=== PATIENT | male | born 1975 | race Caucasian/White ===

== ENCOUNTER 2020-07-06 14:43 | Outpatient (CLI) | payer OTHER, SELFPAY ==
--- NOTE | ~2020-07-06 | XR_ITS ---
XR lumbar spine 2-3V DATE: 07/06/2020 15:02 INDICATION: Lumbar radiculopathy TECHNIQUE: AP, lateral, coned lateral lumbosacral views COMPARISON: 03/09/2011 lumbar spine FINDINGS: There is a transitional vertebra with sacralization and pseudoarthrosis on the right. There are 4 functional lumbar vertebrae. No fracture or bone destruction or spondylolisthesis is evident. Lumbar interspaces are well preserve d. The lumbar and included lower thoracic pedicles are intact. The sacral iliac joints appear normal. Status post left inguinal hernia repair. 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 Reviewed, dictated and finalized at location B. IMPRESSION: Transitional lumbosacral vertebra with sacralization pseudoarthrosi s on the right; this may be a source of chronic low back pain.
== END 2020-07-06 14:44 | disposition home or self-care (01) ==
LOC: ANHIMG 14:50
PROVIDERS: PCP Nurse Practitioner Family; Visit Provider Nurse Practitioner Family
DX: M54.16 Radiculopathy, lumbar region (principal)
CPT/HCPCS: 72100

== ENCOUNTER 2021-08-08 19:34 | Emergency (ER) | payer OTHER, SELFPAY ==
[2021-08-08 19:38] VITALS: BP 143/88; PULSE 83; RESP 16; TEMP 36.9; O2SAT 100
--- NOTE | 2021-08-08 20:14 | ED.EAR ---
HPI - Ear Problem General Chief complaint: Ear Stated complaint: Ear Pain/Mouth Pain Time Seen by Provider: 08/08/21 19:52 Source: patient, RN notes reviewed and old records reviewed Mode of arrival: ambulatory Limitations: no limitations History of Present Illness HPI Narrative: 46 year old male who [facility] with complaints of right ear pain and also redness and discomfort to right upper gum. Patient is edentulous with mild redness noted to upper posterior gum area with patient verbalizing swelling. He has no open wounds or noted abscess formation. He reports that his right ear is very painful states constant throbbing, reports that he has been swimming lately. Patient denies any drainage from his right ear or any tinnitus. Patient has been taking Ibuprofen for his discomfort. MD Complaint: ear pain and other (right upper gum) Location: right ear Treatment prior to arrival: other (ibuprofen) Related Data Allergies Allergy/AdvReac Type Severity Reaction Status Date / Time NAPROXEN SODIUM Allergy Unknown SWELLING Uncoded 08/08/21 19:46 Review of Systems Review of Systems: CONSTITUTIONAL: Denies fever, chills, or sweats. EYES: Denies visual changes, redness, or discharge. ENT: Denies rhinorrhea, congestion, sore throat,positive for right otalgia, and also right upper gum pain posterior region, is edentulous CARDIOVASCULAR: Denies chest pain, palpitations, or edema. RESPIRATORY: Denies cough or dyspnea. GASTROINTESTINAL: Denies abdominal pain, nausea, vomiting, or diarrhea. GENITOURINARY: Denies dysuria or hematuria. SKIN: Denies rash or itching. MUSCULOSKELETAL: Denies back pain, joint pain, or myalgia. NEUROLOGIC: Denies headache, numbness, or weakness. PSYCHIATRIC: Denies anxiety or depression. [facility] Past Medical History Medical History (Updated 08/09/21 @ 20:15 by Lucy Miles NP) Ear infection Fracture of right hand Surgical History Surgical History (Updated 08/09/21 @ 20:18 by Lucy Miles NP) H/O bilateral inguinal hernia repair History of dental surgery edentulous Family History Family History Other Cerebrovascular accident Diabetes mellitus Family history of coronary artery disease Social History Social History (Updated 08/09/21 @ 20:18 by Lucy Miles NP) Smoking packs per day: 1 Smoking cigarettes per day: 20.0 Years smoked: 26 Smoking pack-years: 26.00 Smoking status: Current every day smoker Tobacco type: cigarettes Alcohol intake: never Substance use: unknown Gender identity (if verbalized by the patient): Male Comments At time of signature, agree with nursing past medical, surgical, social and family history. There is no relevant family history pertinent to the presenting complaint Exam Narrative: GENERAL: Well-appearing, well-nourished, and in no acute distress. HEAD: Normocephalic, atraumatic. EYES: PERRLA and EOMI. ENT: Nares clear, no rhinorrhea or epistaxis. Mucous membranes moist.Right TM normal with good light reflex, ear canal red and excoriated no drainage noted, Left TM normal with good light reflex,no drainage noted. Throat pink with no lesions or exudates noted or tonsil swelling. right upper gum line posterior noted small area of redness with no open lesions or any drainage noted. NECK: Supple.no lymphadenopathy CHEST: Clear to auscultation. No respiratory distress.SAO2 100% on room air HEART: Regular rate and rhythm. No murmur heard. Normal peripheral pulses. ABDOMEN: Soft, nontender, nondistended, normal active bowel sounds. EXTREMITIES: Normal range of motion. No edema. SKIN: Warm, dry, no rash. NEURO: No focal deficits. Alert and oriented x3. Course Course Level of Care: Express Care Visit Vital Signs Vital signs: Vital Signs Temperature 36.9 C 08/08/21 19:38 Pulse Rate 83 08/08/21 19:38 Respiratory Rate 16 08/08/21 19:38 Blood Pressure 143/88 H
== END 2021-08-08 20:28 | disposition home or self-care (01) ==
PROVIDERS: Emergency Provider Registered Nurse; PCP Nurse Practitioner Family
DX: H60.91 Unspecified otitis externa, right ear (principal); K08.89 Other specified disorders of teeth and supporting structures; F17.210 Nicotine dependence, cigarettes, uncomplicated
CPT/HCPCS: 99213; G0463

== ENCOUNTER 2021-11-22 08:59 | Emergency (ER) | payer OTHER, SELFPAY ==
[2021-11-22 09:14] VITALS: BP 142/78; PULSE 82; RESP 16; TEMP 36.8; O2SAT 100
--- NOTE | 2021-11-22 09:48 | ED.DENTAL ---
HPI - Dental/Oral General Chief complaint: Dental/Oral Stated complaint: Pain in gums, neck pain Time Seen by Provider: 11/22/21 09:45 Source: patient Mode of arrival: ambulatory History of Present Illness HPI Narrative: 46-year-old male presented for complaint of right and left upper gum pain for about 3 days. Patient has had all teeth removed in the remote past. No open areas, drainage, redness or swelling reported. He has taken ibuprofen today for pain. He also endorses pain to the left upper back and neck. Denies numbness, tingling, weakness of the upper extremities. Denies nausea, vomiting, fevers or chills. He is scheduled with PCP tomorrow. Complaint: tooth pain Related Data Allergies Allergy/AdvReac Type Severity Reaction Status Date / Time naproxen Allergy Swelling Verified 11/22/21 09:40 Review of Systems Review of Systems: CONSTITUTIONAL: Denies body aches, fever, chills ENT: Denies rhinorrhea, congestion, sore throat, or otalgia. Reports dental/gum pain CARDIOVASCULAR: Denies chest pain, palpitations RESPIRATORY: Denies cough or dyspnea. SKIN: Denies rash, itching, or wounds. MUSCULOSKELETAL: reports left upper back/neck pain NEUROLOGIC: Denies headache, numbness, tingling, or weakness. [facility] Past Medical History Medical History Ear infection Fracture of right hand Surgical History Surgical History H/O bilateral inguinal hernia repair History of dental surgery edentulous Family History Family History Other Cerebrovascular accident Diabetes mellitus Family history of coronary artery disease Social History Social History Smoking packs per day: 1 Smoking cigarettes per day: 20.0 Years smoked: 26 Smoking pack-years: 26.00 Smoking status: Current every day smoker Tobacco type: cigarettes Alcohol intake: never Substance use: unknown Gender identity (if verbalized by the patient): Male Comments At time of signature, I have reviewed and agree with nursing past medical, surgical, social and family history unless otherwise noted. Please see nursing chart for further information. There is no relevant family history pertinent to the presenting complaint Exam Narrative: GENERAL: well appearing HEAD: Normocephalic, atraumatic. EYES: EOMI. No redness or drainage. Conjunctivae normal. ENT: Dental/gum pain location of #13 and #4 areas, no swelling redness or drainage; Mucous membranes pink and moist. TMs normal bilaterally. Throat normal. Uvula midline. NECK: Normal AROM. No VPT. No lymphadenopathy. CHEST: No respiratory distress. Clear to auscultation. HEART: Regular rate and rhythm. No murmur appreciated. SKIN: Warm, dry, no rash. Normal skin turgor. MUSC: Subjective Left trap and infraspinatus pain, full ROM to LUE, normal strength and sensation cap refill <3seconds. NEURO: No focal deficits. Alert and oriented x3. Gait steady. Course Course Emergency Course: Patient is aware of diagnosis, understands and agrees to treatment plan. Anticipatory guidance given. Patient agrees to follow-up as directed and is aware of reasons to seek care at the emergency department. Portions of this record may have been created with voice recognition software Level of Care: Express Care Visit Vital Signs Vital signs: Vital Signs Temperature 98.2 F 11/22/21 09:14 Pulse Rate 82 11/22/21 09:14 Respiratory Rate 16 11/22/21 09:14 Blood Pressure 142/78 H 11/22/21 09:14 Pulse Oximetry 100 11/22/21 09:14 Oxygen Delivery Room Air 11/22/21 09:14 Temperature 98.2 F 11/22/21 09:14 Pulse Rate 82 11/22/21 09:14 Respiratory Rate 16 11/22/21 09:14 Blood Pressure 142/78 H 11/22/21 09:14 Pulse Oximetry 100 11/22/21 09:14 Oxygen
== END 2021-11-22 10:07 | disposition home or self-care (01) ==
PROVIDERS: Emergency Provider Nurse Practitioner Family; PCP Nurse Practitioner Family
DX: K08.89 Other specified disorders of teeth and supporting structures (principal); M54.9 Dorsalgia, unspecified; F17.210 Nicotine dependence, cigarettes, uncomplicated
CPT/HCPCS: 99213; G0463

== ENCOUNTER 2022-06-09 14:24 | Emergency (ER) | payer OTHER, SELFPAY ==
[2022-06-09 14:28] VITALS: BP 141/83; PULSE 78; RESP 16; TEMP 36.9; O2SAT 100
--- NOTE | 2022-06-09 15:02 | ED.DENTAL ---
HPI - Dental/Oral General Chief complaint: Dental/Oral Stated complaint: mouth and ear pain Time Seen by Provider: 06/09/22 14:55 Source: patient, RN notes reviewed and old records reviewed Mode of arrival: ambulatory Limitations: no limitations History of Present Illness HPI Narrative: 46 year old male who presents to[facility] wit complaint of discomfort to right upper gum area which radiates to his right ear for the past 1 day duration. Patient reports that he has been using salt watery gargles for his discomfort. Patient reports that he has noted a white raised patch of whiteness to his right upper gum area, is edentulous. Patient denies any fevers. MD Complaint: tooth pain (gum lesion) Onset (ago): day(s) (since yesterday) Severity scale (1-10): 8 Treatment prior to arrival: other (salt water gargles) Related Data Home Medications Medication Instructions Recorded Confirmed fluticasone propionate 50 1 spray intranasal Q12H 06/09/22 06/09/22 mcg/actuation nasal spray,suspension Allergies Allergy/AdvReac Type Severity Reaction Status Date / Time naproxen Allergy Swelling Verified 06/09/22 14:40 Review of Systems Review of Systems: CONSTITUTIONAL: Denies fever, chills, or sweats. ENT: Denies rhinorrhea, congestion, sore throat, reports right ear pain. Reports right upper gum discomfort and jaw discomfort. CARDIOVASCULAR: Denies chest pain, palpitations, or edema. RESPIRATORY: Denies cough or dyspnea. SKIN: Denies rash or itching. MUSCULOSKELETAL: Denies myalgia. NEUROLOGIC: Denies headache All systems reviewed & are unremarkable except as noted in HPI and below PMFSH Past Medical History Medical History Ear infection Fracture of right hand Surgical History Surgical History H/O bilateral inguinal hernia repair History of dental surgery edentulous Family History Family History Other Cerebrovascular accident Diabetes mellitus Family history of coronary artery disease Social History Social History Smoking packs per day: 1 Smoking cigarettes per day: 20.0 Years smoked: 26 Smoking pack-years: 26.00 Smoking status: Current every day smoker Tobacco type: cigarettes Alcohol intake: never Substance use: unknown Gender identity (if verbalized by the patient): Male Comments At time of signature, agree with nursing past medical, surgical, social and family history. There is no relevant family history pertinent to the presenting complaint Exam Narrative: GENERAL: Well-appearing, well-nourished, and in no acute distress. HEAD: Normocephalic, atraumatic. EYES: PERRLA and EOMI. ENT: Nares clear, no rhinorrhea or epistaxis. Mucous membranes moist, small raised whitish area to gum right upper area, TM;s normal throat pink with no swelling NECK: Supple.no lymphadenopathy CHEST: Clear to auscultation. No respiratory distress.SAO2 100% on room air HEART: Regular rate and rhythm. No murmur heard. Normal peripheral pulses. SKIN: Warm, dry, no rash. NEURO: No focal deficits. Alert and oriented x3. Course Course Emergency Course: Patient is aware of diagnosis, understands and agrees to treatment plan. Anticipatory guidance given. Patient agrees to follow-up as directed and is aware of reasons to seek care at the emergency department. Portions of this record may have been created with voice recognition software Level of Care: Express Care Visit Vital Signs Vital signs: Vital Signs Temperature 36.9 C 06/09/22 14:28 Pulse Rate 78 06/09/22 14:28 Respiratory Rate 16 06/09/22 14:28 Blood Pressure 141/83 H 06/09/22 14:28 Pulse Oximetry 100 06/09/22 14:28 Oxygen Delivery Room Air 06/09/22 14:28 Temperature 36.9 C 06/09/22 14:28 Pulse Rate
== END 2022-06-09 15:19 | disposition home or self-care (01) ==
PROVIDERS: Emergency Provider Registered Nurse; PCP Nurse Practitioner Family
DX: K05.20 Aggressive periodontitis, unspecified (principal); F17.210 Nicotine dependence, cigarettes, uncomplicated
CPT/HCPCS: 99213; G0463

== ENCOUNTER 2022-10-18 14:31 | Emergency (ER) | payer OTHER, SELFPAY ==
[2022-10-18 14:37] VITALS: BP 124/79; PULSE 81; RESP 16; TEMP 36.7; O2SAT 100
--- NOTE | 2022-10-18 14:46 | ED.MALEGU ---
HPI - Male Genitourinary General Chief complaint: Urogenital-Male Stated complaint: poss UTI Time Seen by Provider: 10/18/22 14:46 Source: patient Mode of arrival: ambulatory Limitations: no limitations History of Present Illness HPI Narrative: 47 yo M presents with c/o urinary frequency, foul smelling urine for 1 wk. Also reports cracking, pain to R ear. Saw PCP for this complaint a wk ago and given antibiotic eyedrop. No change to symptoms. Afebrile. No concern for STI. All systems reviewed and negative except as noted above. Related Data Home Medications Medication Instructions Recorded Confirmed fluticasone propionate 50 1 spray intranasal Q12H 06/09/22 10/18/22 mcg/actuation nasal spray,suspension Allergies Allergy/AdvReac Type Severity Reaction Status Date / Time naproxen Allergy Swelling Verified 10/18/22 14:45 Review of Systems Review of Systems: CONSTITUTIONAL: Denies fever, chills, or sweats. EYES: Denies visual changes, redness, or discharge. ENT: Denies rhinorrhea, congestion, sore throat, or otalgia. Reports pain and crackling to right ear. CARDIOVASCULAR: Denies chest pain, palpitations, or edema. RESPIRATORY: Denies cough or dyspnea. GASTROINTESTINAL: Denies abdominal pain, nausea, vomiting, or diarrhea. GENITOURINARY: Denies dysuria or hematuria. Reports frequency and foul-smelling urine. SKIN: Denies rash or itching. MUSCULOSKELETAL: Denies back pain, joint pain, or myalgia. NEUROLOGIC: Denies headache, numbness, or weakness. PSYCHIATRIC: Denies anxiety or depression. All other systems reviewed are negative, except as documented in HPI. [facility] Past Medical History Medical History Ear infection Fracture of right hand Surgical History Surgical History H/O bilateral inguinal hernia repair History of dental surgery edentulous Family History Family History Other Cerebrovascular accident Diabetes mellitus Family history of coronary artery disease Social History Social History Smoking packs per day: 1 Smoking cigarettes per day: 20.0 Years smoked: 26 Smoking pack-years: 26.00 Smoking status: Current every day smoker Tobacco type: cigarettes Alcohol intake: never Substance use: unknown Gender identity (if verbalized by the patient): Male Comments At time of signature, agree with nursing past medical, surgical, social and family history. There is no relevant family history pertinent to the presenting complaint. Exam Narrative: GENERAL: This is a well-nourished, well-developed patient, in no apparent distress. HEAD: normocephalic, atraumatic. EYES: PERRL. Sclera clear/white. Vision is grossly intact. EARS: External ears normal, auditory canals clear and without drainage, fluid to bilateral TMs, dull light reflex, bilateral TMs injected. No perforation but laterally. NOSE: External nose normal with no obvious nasal discharge, nares without redness, no rhinorrhea. THROAT: Mucous membranes moist, posterior pharynx clear. NECK: Neck supple, non-tender without lymphadenopathy, masses or thyromegaly. CARDIOVASCULAR: Regular rate and rhythm without murmurs, gallops, or rubs. RESPIRATORY: Clear to auscultation. Breath sounds equal bilaterally. No wheezes, rales, or rhonchi. SKIN: warm, Dry, intact with no suspicious lesions or rash, good texture and turgor. NEURO: awake, alert, and oriented to person, place and time. There were no obvious focal neurologic abnormalities. EXTREMITIES: No joint tenderness, effusion, or edema noted. Course Course Level of Care: Express Care Visit Vital Signs Vital signs: Vital Signs Temperature 36.7 C 10/18/22 14:37 Pulse Rate 81 10/18/22 14:37 Respiratory Rate 16 10/18/22 14:37 Blood Pre
[2022-10-18 14:59] LABS: Glucose Point of Care 117 mg/dl (65-105)
== END 2022-10-18 15:09 | disposition home or self-care (01) ==
PROVIDERS: Emergency Provider Nurse Practitioner Family; PCP Nurse Practitioner Family
DX: H65.01 Acute serous otitis media, right ear (principal); R35.0 Frequency of micturition; F17.210 Nicotine dependence, cigarettes, uncomplicated
CPT/HCPCS: 81003; 82948; 87086; 99213; G0463

== ENCOUNTER 2022-12-13 15:11 | Outpatient (CLI) | payer OTHER, SELFPAY ==
--- NOTE | ~2022-12-13 | XR_ITS ---
EXAMINATION: XR hip RT min 2V DATE: 12/13/2022 15:31 INDICATION: Right hip pain. TECHNIQUE: 2 views of right hip were obtained. COMPARISON: None. FINDINGS: Bone alignment is normal. There is decreased femoral head/neck offset anterolaterally, whic h may be seen with femoral acetabular impingement. Right hip joint space is normal. IMPRESSION: 1. No arthritis. Reviewed, dictated and finalized at location E. IMPRESSION: 1. No arthritis.
--- NOTE | ~2022-12-13 | XR_ITS ---
EXAMINATION: XR lumbar spine 2-3V DATE: 12/13/2022 15:31 INDICATION: Lumbar radiculopathy. TECHNIQUE: 3 views of lumbar spine were obtained. COMPARISON: Lumbar spine radiographs 07/06/2020 FINDINGS: Bone alignment is normal. Vertebral body heights and intervertebral disc heights are normal . There is multilevel mild facet joint osteoarthritis in lumbar spine. Surgical clips overlie the lef t pelvis. IMPRESSION: 1. Mild lumbar facet joint osteoarthritis. Reviewed, dictated and finalized at location E.
== END 2022-12-13 15:12 | disposition home or self-care (01) ==
PROVIDERS: PCP Nurse Practitioner Family; Visit Provider Nurse Practitioner Family
DX: M25.551 Pain in right hip (principal); M54.16 Radiculopathy, lumbar region; M51.36 Other intervertebral disc degeneration, lumbar region
CPT/HCPCS: 72100; 73502

== ENCOUNTER 2023-04-18 08:10 | Emergency (ER) | payer OTHER, SELFPAY ==
[2023-04-18 08:21] VITALS: BP 123/76; PULSE 83; RESP 16; TEMP 37.1; O2SAT 100
--- NOTE | 2023-04-18 08:43 | ED.URI ---
HPI - URI/Sore Throat General Chief Complaint: Upper Respiratory Infection Stated Complaint: throat/ears History of Present Illness HPI Narrative: pt is a 47 y/o male, presents to with 7 day hx of URI symptoms that began with nasal congestion but are not localized in the right ear and sinuses, without known fevers or chills. He denies CP or SOB, he has not taken any OTC medications for symptom relief. He denies much of a cough. He is a smoker, he denies any other associated symptoms or modifying factors. Related Data Allergies Allergy/AdvReac Type Severity Reaction Status Date / Time naproxen Allergy Swelling Verified 10/18/22 14:45 Review of Systems ENT: Comments: refer to HPI Cardiovascular: Comments: no CP or SOB, no palpitations or syncope, no orthopnea Respiratory: Comments: refer to HPI [facility] Past Medical History Medical History Ear infection Fracture of right hand Surgical History Surgical History H/O bilateral inguinal hernia repair History of dental surgery edentulous Family History Family History Other Cerebrovascular accident Diabetes mellitus Family history of coronary artery disease Social History Social History Smoking packs per day: 1 Smoking cigarettes per day: 20.0 Years smoked: 26 Smoking pack-years: 26.00 Smoking status: Current every day smoker Tobacco type: cigarettes Alcohol intake: never Substance use: unknown Gender identity (if verbalized by the patient): Male Exam Const: General: healthy appearing, no acute distress and alert Nutritional Appearance: well nourished Orientation/consciousness: patient oriented x3 Limitations: no limitations HENMT: Head: normal to inspection Ears: EAC's normal and TM abnormal (right TM is erythematous with an opaque effusion) Other: Left TM is translucent and retracted Eyes: Conjunctivae: conjunctivae normal Pupils: Equal, round and reactive pupils present EOM: EOMs intact bilaterally Direct Ophthalmoscopy: no photophobia Neck: Neck: normal visual inspection, no lymphadenopathy and no meningeal signs Resp: Effort & Inspection: normal respiratory effort Auscultation: clear to auscultation bilaterally Cardio: Rate: regular rate Rhythm: regular rhythm GI: GI Palp: Yes Soft to palpation Skin: General skin exam: normal color Rashes: no rashes Wounds: no wounds Neuro: General: patient oriented x3, moves all extremities, no meningeal signs, no focal motor deficits and CN's II-XI intact bilaterally Speech: normal speech Gait exam (Neuro): Normal gait present Extrem: General: normal to inspection and no clubbing, cyanosis or edema Course Course Emergency Course: Suspect post viral ABRS/right otitis media. will treat with oral abx, short steroid course and OTC antihistamines are encouraged. Pt is agreeable with plan. FU in 3 days if symptoms are not improving with PCP or return here. ER if condition worsens. Pt is agreeable with plan Level of Care: Express Care Visit ([id number]) Vital Signs Vital signs: Vital Signs Temperature 37.1 C 04/18/23 08:21 Pulse Rate 83 04/18/23 08:21 Respiratory Rate 16 04/18/23 08:21 Blood Pressure 123/76 04/18/23 08:21 Pulse Oximetry 100 04/18/23 08:21 Oxygen Delivery Room Air 04/18/23 08:21 Temperature 37.1 C 04/18/23 08:21 Pulse Rate 83 04/18/23 08:21 Respiratory Rate 16 04/18/23 08:21 Blood Pressure 123/76 04/18/23 08:21 Pulse Oximetry 100 04/18/23 08:21 Oxygen Delivery Room Air 04/18/23 08:21 MDM - URI/Sore Throat MDM Narrative Medical decision making narrative: oral steroids, oral abx, OTC antihistamines. FU for ear check if symptoms are not improving in 3 days Differential Diag
== END 2023-04-18 08:58 | disposition home or self-care (01) ==
PROVIDERS: Emergency Provider Nurse Practitioner Family; PCP Nurse Practitioner Family
DX: H66.91 Otitis media, unspecified, right ear (principal); J01.10 Acute frontal sinusitis, unspecified; F17.210 Nicotine dependence, cigarettes, uncomplicated
CPT/HCPCS: 99213; G0463

== ENCOUNTER 2023-09-10 11:55 | Emergency (ER) | payer OTHER, SELFPAY ==
[2023-09-10 12:00] VITALS: BP 132/77; PULSE 69; RESP 20; TEMP 36.4; O2SAT 100
--- NOTE | 2023-09-10 12:17 | ED.GENADULT ---
HPI - General Adult General Chief complaint: Dental/Oral Stated complaint: Ear Pain/Mouth Pain Time Seen by Provider: 09/10/23 12:10 Source: patient, RN notes reviewed and old records reviewed Mode of arrival: ambulatory Limitations: no limitations History of Present Illness HPI narrative: 48 year old male accompanied by daughter with one week duration of pain to his right ear and along his right upper gum area. Patient i edentulous but reports tenderness to posterior upper gum area which radiates to his ear. Patient reports that he has been taking Ibuprofen for his discomfort with no relief. Patient denies any fevers, chills or sweats, denies any sore throat or any cough. MD complaint: right ear pain, right upper gum area pain Onset (ago): week(s) (1) Severity: moderate Treatments prior to arrival: NSAID and other (salt water gargles) Related Data Allergies Allergy/AdvReac Type Severity Reaction Status Date / Time naproxen Allergy Swelling Verified 10/18/22 14:45 Review of Systems Review of Systems: CONSTITUTIONAL: Denies fever, chills, or sweats. ENT: Denies rhinorrhea, congestion, sore throat, positive for right ear otalgia. reports some pain to top right gum area with no redness or swelling noted. CARDIOVASCULAR: Denies chest pain, palpitations, or edema. RESPIRATORY: Denies cough or dyspnea. SKIN: Denies rash or itching. MUSCULOSKELETAL: Denies myalgia. NEUROLOGIC: Denies headache All systems reviewed & are unremarkable except as noted in HPI and below PMFSH Past Medical History Medical History Ear infection Fracture of right hand Surgical History Surgical History H/O bilateral inguinal hernia repair History of dental surgery edentulous Family History Family History Other Cerebrovascular accident Diabetes mellitus Family history of coronary artery disease Social History Social History Smoking packs per day: 1 Smoking cigarettes per day: 20.0 Years smoked: 26 Smoking pack-years: 26.00 Smoking status: Current every day smoker Tobacco type: cigarettes Alcohol intake: never Substance use: unknown Gender identity (if verbalized by the patient): Male Comments At time of signature, agree with nursing past medical, surgical, social and family history. There is no relevant family history pertinent to the presenting complaint Exam Narrative: GENERAL: Well-appearing, well-nourished, and in no acute distress. HEAD: Normocephalic, atraumatic. EYES: PERRLA and EOMI. ENT: Nares clear, no rhinorrhea or epistaxis. Mucous membranes moist. edentulous. Right TM red, Left TM normal, throat pink with no swelling. no redness or swelling of gums noted states discomfort upper right posterior gum area with no evidence of abscess or any welling is edentulous NECK: Supple. no lymphadenopathy CHEST: Clear to auscultation. No respiratory distress. respirations even and nonlabored , no cough or tachypnea, SAO2 100% on room air HEART: Regular rate and rhythm. No murmur heard. Normal peripheral pulses. SKIN: Warm, dry, no rash. NEURO: No focal deficits. Alert and oriented x3. Course Course Emergency Course: Patient is aware of diagnosis, understands and agrees to treatment plan. Anticipatory guidance given. Patient agrees to follow-up as directed and is aware of reasons to seek care at the emergency department. Portions of this record may have been created with voice recognition software Level of Care: Express Care Visit Vital Signs Vital signs: Vital Signs Temperature 36.4 C 09/10/23 12:00 Pulse Rate 69 09/10/23 12:00 Respiratory Rate 20 09/10/23 12:00 Blood Pressure 132/77 09/10/23 12:00 Pulse Oximetry 100 09/10/23 12:00 Oxygen Delivery Room Air
== END 2023-09-10 12:42 | disposition home or self-care (01) ==
PROVIDERS: Emergency Provider Registered Nurse; PCP Nurse Practitioner Family
DX: H66.91 Otitis media, unspecified, right ear (principal); K08.89 Other specified disorders of teeth and supporting structures; F17.210 Nicotine dependence, cigarettes, uncomplicated
CPT/HCPCS: 99213; G0463

== ENCOUNTER 2024-08-05 08:45 | Emergency (ER) | payer OTHER, SELFPAY ==
[2024-08-05 08:56] VITALS: BP 148/86; PULSE 76; RESP 18; TEMP 36.8; O2SAT 100
--- OUTSIDE RECORDS SUMMARY | 2024-08-05 09:02 | XMS_ITS | Referral Summary ---
Author Organization [facility] Medical Office Building [facility] Address [address] [place] [address] Care Team Providers Care Operator Coating Furnace Name Role Phone Stinson, Yanet Mcgarry NP Primary Care Provider Allergies Active Allergy Reactions Criticality Noted Date Comments Naproxen Swelling Medium Medications acetaminophen (TYLENOL ORAL) Take by mouth Active ibuprofen (ibuprofen) 200 mg tab/cap Take by mouth every 6 (six) hours as needed for pain Active Active Problems Problem Noted Date Diagnosed Date Palpitations 09/24/2019 Assessment & Plan (09/24/2019 12:00 PM CDT): A plan to further investigate this with echocardiography. If the patient has normal cardiac structure and performance in the setting of a normal ECG and normal exam without a family history of sudden places him in a very safe risk group. Conservative management at that point would be suggested. I will call him with normal echocardiographic findings. Abnormal glucose 09/24/2019 Assessment & Plan (09/24/2019 12:00 PM CDT): Patient has had glucose values that have been above 100. We discussed the importance of weight management in staying is lean is possible to help avoid any long-term affects. Hx of colonic polyps 08/29/2019 Overview (08/29/2019): Added automatically from request for surgery [id number] Muscle spasm 11/20/2017 Assessment & Plan (11/20/2017 6:43 AM CDT): Patient presented with complains of muscle spasm with posturing of the right upper extremity that lasted about 30 min. Associated with some numbness in the hand. Neurology was consulted Differential diagnosis cervical stenosis, brachial plexus disorder, demyelinating disease, seizure disorder. Workup is in progress. Will follow up with MRI results of the cervical spine and brain Start on aspirin Will check for fasting lipid panel for cardiovascular risk stratification Smoker 11/20/2017 Assessment & Plan (09/24/2019 12:01 PM CDT): Because the patient voiced an interest in smoking cessation we spent approximately 12-15 minutes discussing its importance, its affect it may have had on his body, and establishing a plan for success. Patient appears to be mildly motivated toward success. Assessment & Plan (11/20/2017 6:43 AM CDT): Discussed and encouraged smoking cessation. 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 Gender Identity Not on file Sexual Orientation Not on file Last Filed Vital Signs Vital Sign Reading Time Taken Comments Blood Pressure 119/91 11/14/2019 10:05 AM CDT Pulse 64 11/14/2019 10:05 AM CDT Temperature 36.7 C (98.1 F) 11/14/2019 10:05 AM CDT Respiratory Rate 18 11/14/2019 10:05 AM CDT Oxygen Saturation 99% 11/14/2019 10:05 AM CDT Inhaled Oxygen Concentration - - Weight 78.9 kg (174 lb) 11/14/2019 7:51 AM CDT Height 177.8 cm (5' 10) 11/14/2019 7:51 AM CDT Body Mass Index 24.97 11/14/2019 7:51 AM CDT Plan of Treatment Not on file Procedures Procedure Name Priority Date/Time Associated Diagnosis Comments COLONOSCOPY 11/14/2019 7:44 AM CDT from Last 3 Months or Most Recently Relevant to Health Maintenance Results * COLONOSCOPY (11/14/2019 7:44 AM CDT) Anatomical Region Laterality Modality Other Narrative Procedure Note Hong Acosta MD - 11/14/2019 7:44 AM CDT [facility] Patient Name: Elliot Cancino Procedure Date: 11/14/2019 7:44 AM Date of : 1975 Admit Type: Outpatient Age: 44 Gender: Male Attending MD: Hong Acosta M.D. Room: [facility] ENDOSCOPY ROOM 1 Note Status: Finalized Patient Profile: This is a 44 year old male. Patient has history of polyps. Reported his last colonoscopy at outside hospital is not available at this time. No family history of colon cancer but he has family history of colon polyps. Procedure: Colonoscopy Indications: High risk colon cancer surveillance: Personalhistory of colonic polyps, Last colonoscopy: 2014 Referring MD: Kenyon Fernandes M.D. Providers: Hong Acosta M.D. Impression: - The entire examined colon is normal. - Small internal hemorrhoids. - No specimens collected. Recommendation: - Repeat colonoscopy in 5 years for surveillance. - Continue present medications. Medicines: Monitored Anesthesia Care Complications: No immediate complications. Estimated Blood Loss: Estimated blood loss: none. Procedure: Pre-Anesthesia Assessment: - Prior to the procedure, a History and Physical was performed, and patient medications and allergieswere reviewed. The patient's tolerance of previous anesthesia was also reviewed. The risks and benefitsof the procedure and the sedation options and riskswere discussed with the patient. All questions were answered, and informed consent was obtained. Prior Anticoagulants: The patient has taken no previous anticoagulant or antiplatelet agents. ASA Grade Assessment: II - A patient with mild systemicdisease. After reviewing the risks and benefits, the patientwas deemed in satisfactory condition to undergo the procedure. The benefits, risks and alternatives of theprocedure and sedation were discussed and informed consent was obtained. All questions were answered. Please referto the signed informed consent document in the medical record. The bowel preparation used was Miralax. The bowel preparation used was bisacodyl tablets. Bowel prep was administered using a split dose. The scopewas passed under direct vision. The PediatricColonoscope PCF-H190L [id number] was introduced through the anusand advanced to the the cecum, identified by appendiceal orifice and ileocecal valve. The quality of thebowel preparation was excellent. Findings: The perianal and digital rectal examinations were normal. The cecum appeared normal. The terminal ileum appeared normal. The colon (entire examined portion) appeared normal. No polyps and no mass lesions noted. Internal hemorrhoids were found during retroflexion. The hemorrhoids were small. Electronically signed by Hong Acosta M.D. Hong Acosta M.D. 11/14/2019 9:39:34 AM Number of Addenda: 0 Note Initiated On: 11/14/2019 7:44 AM Procedure Code(s): --- Professional --- 10509, Colonoscopy, flexible; diagnostic, including collection of specimen(s) by brushing or washing, when performed (separateprocedure) Diagnosis Code(s): --- Professional --- Z86.010, Personal history of colonic polyps K64.8, Other hemorrhoids CPT copyright 2017 [employer]. All rights reserved. The codes documented in this report are preliminary and upon sterile processing technologist reviewmay be revised to meet current compliance requirements. Recognized by the [place] [employer] for promoting quality in endoscopy Hong Acosta MD ENDOSCOPY PROCEDURES Final Result from Last 3 Months or Most Recently Relevant to Health Maintenance Insurance [facility] Advance Directives For more information, please contact: [phone] * Full Code (Latest Code Status on File) Date Activated Date Inactivated Comments 11/14/2019 7:43 AM 11/14/2019 2:51 PM * Full Code Date Activated Date Inactivated Comments 11/19/2017 11:09 PM 11/20/2017 10:08 PM * Full Code Date Activated Date Inactivated Comments 11/19/2017 2:14 PM 11/19/2017 11:09 PM Care Teams Operator Coating Furnace Relationship Specialty Start Date End Date Yanet Stinson NP [address] [place] [address] PCP - General Nurse Practitioner 03/14/22
--- OUTSIDE RECORDS SUMMARY | 2024-08-05 09:02 | XMS_ITS | Clinical Summary ---
Author Organization [facility] Address [address] [place] [address] Care Team Providers Care Rn Care Manager Name Role Phone Poonam Velez MD Primary Care Provider [phone] Source Comments [facility],non-owned Affiliates and Associated Physician Practices is amultiple site organization consisting of ambulatory clinics and hospital sitesin [place], [place], [place] and [place]. This disclosure is being madepursuant to the Care Everywhere program and may not contain all information available regarding this patient. Last updated 17.[facility] Medications * Be aware that medications may not be up to date on this document. Alwaysverify current medications with the patient. 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 Gender Identity Not on file Sexual Orientation Not on file Last Filed Vital Signs Vital Sign Reading Time Taken Comments Blood Pressure - - Pulse - - Temperature - - Respiratory Rate - - Oxygen Saturation - - Inhaled Oxygen Concentration - - Weight 72.6 kg (160 lb) 07/03/2016 9:15 AM CDT Height 177.8 cm (5' 10) 07/03/2016 9:15 AM CDT Body Mass Index 22.96 07/03/2016 9:15 AM CDT Plan of Treatment Health Maintenance Due Date Last Done Comments COLOGUARD (AGES 45-75) - COL ON CA SCREENING 1975 COLON MONITORING 1975 COLONOSCOPY - COLON CA SCREENING 1977 CT COLONOGRAPHY - COLON CA SCREENING 1975 Colorectal Cancer Screening 1975 FIT - COLON CA SCREENING 1975 FLEX SIG - COLON CA SCREENING 1975 LIPID TESTING 1975 HIV SCREENING 1992 HEPATITIS C SCREENING 06/11/1995 DTAP/TDAP/TD VACCINES (1 - Tdap) 1996 HEPATITIS B VACCINE (1 of 3 - 19+ 3-dose series) 1996 COVID-19 VACCINE (1 - 2023-2 5 season) 2023 DEPRESSION SCREENING 02/20/2024 INFLUENZA VACCINE (Season Ended) 2024 ZOSTER VACCINE (1 of 2) 06/16/2027 HIB VACCINE Aged Out No longer eligi ble based on patient's age to complete this topic HPV VACCINE Aged Out No longer eligi ble based on patient's age to complete this topic MENINGOCOCCAL (Group B) VACC INE SHARED DECISION-MAKING Aged Out No longer eligibl e based on patient's age to complete this topic MENINGOCOCCAL GROUPS A/C/Y/W VACCINE Aged Out No longer eligible b ased on patient's age to complete this topic PNEUMOCOCCAL VACCINE Aged Out No long er eligible based on patient's age to complete this topic Care Teams Rn Care Manager Relationship Specialty Start Date End Date Poonam Velez MD PCP - General 05/11/15
--- OUTSIDE RECORDS SUMMARY | 2024-08-05 09:02 | XMS_ITS | Clinical Summary ---
Author Organization [facility] Medical Office Building [address] Address [address] [place] [address] Care Team Providers Care Lasting Floorworker Name Role Phone Stinson, Yanet Mcgarry NP [...] (08/29/2019): Added automatically from request for surgery [id number] Muscle spasm 11/20/2017 Assessment & Plan (11/20/2017 [...] Discussed and encouraged smoking cessation. 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 Gender Identity Not on file Sexual Orientation Not on file Obstetrics History Last Filed Vital Signs Vital Sign Reading [...] 11/14/2019 7:51 AM CDT Plan of Treatment Health Maintenance Due Date Last Done Comments Depression Screening 1975 Hepatitis C Screening 1975 DTaP/Tdap/Td Vaccine (1 - Tdap) 1988 Hepatitis B Screening 06/16/1995 Regular Well Visit/Exam 18-64 06/16/1995 Pneumococcal vaccine <65 (1 of 2 - PCV) 1996 Influenza Vaccine (Season Ended) 2024 Colon Cancer Screening-Colonoscopy 11/13/20292019 Procedures Procedure Name Priority Date/Time Associated Diagnosis Comments COLONOSCOPY 11/14/2019 7:44 AM CDT from Last 3 Months or Most Recently Relevant to Health Maintenance Results * COLONOSCOPY (11/14/2019 7:44 AM CDT) Anatomical Region Laterality Modality Other Narrative Procedure Note Hong Acosta MD - 11/14/2019 7:44 AM CDT [facility] Patient Name: Elliot Cancino Procedure Date: 11/14/2019 7:44 AM Date of : 1975 Admit Type: Outpatient Age: 44 Gender: Male Attending MD: Hong Acosta M.D. Room: [facility] ENDOSCOPY ROOM 1 Note Status: Finalized Patient [...] passed under direct vision. The PediatricColonoscope PCF-H190L [id number] was introduced through the anusand advanced to [...] 7:44 AM Procedure Code(s): --- Professional --- 37342, Colonoscopy, flexible; diagnostic, including collection of specimen(s) by brushing or washing, when performed (separateprocedure) Diagnosis Code(s): --- Professional --- Z86.010, Personal history of colonic polyps K64.8, Other hemorrhoids CPT copyright 2017 [employer]. All rights reserved. The codes documented in this report are preliminary and upon asphalt paver operator reviewmay be revised to meet current compliance requirements. Recognized by the [employer] for promoting quality in endoscopy Hong Acosta MD ENDOSCOPY PROCEDURES Final Result from Last 3 Months or Most Recently Relevant to Health Maintenance Insurance [facility] Advance Directives For more information, please contact: [phone] * Full Code (Latest Code Status on File) Date Activated Date Inactivated Comments 11/14/2019 7:43 AM 11/14/2019 2:51 PM * Full Code Date Activated Date Inactivated Comments 11/19/2017 11:09 PM 11/20/2017 10:08 PM * Full Code Date Activated Date Inactivated Comments 11/19/2017 2:14 PM 11/19/2017 11:09 PM Care Teams Lasting Floorworker Relationship Specialty Start Date End Date Yanet Stinson NP [address] [place] [address] PCP - General Nurse Practitioner 03/14/22
--- OUTSIDE RECORDS SUMMARY | 2024-08-05 09:02 | XMS_ITS | Data Portability ---
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 Plan of Treatment Reminders Order Date Submit Date Provider Last Modified By Organization Details Last Modified Time Details Appointments None recorded . Lab rapid strep group A, throat 2023 024 In-Office Order, Internal Use Only DO Not Attach Compendium DO Not Attach Compendium, Do Not Delete/merge, [id number] 11:03:41 rapid SARS CoV 2 Ag, QL IA, respirat ory specimen 2023 024 In-Office Order, Internal Use Only DO Not Attach Compendium DO Not Attach Compendium, Do Not Delete/merge, [id number] 11:03:23 rapid flu (A+B) 2023 024 In-Office Order, Internal Use Only DO Not Attach Compendium DO Not Attach Compendium, Do Not Delete/merge, [id number] 11:03:30 streptoc occus group A, culture, throat 2023 024 MAKEDA [facility], [address] [place] [address] 2, [place], [address], 4 03:12:32 TSH, ultra-se nsitive, serum 2022 023 MAKEDA [facility], [address], [place], [address], 3 08:29:07 CMP, serum or plasma 2022 023 [facility], [address], [place], [address], 3 03:08:03 lipid panel, serum 2022 023 [facility], [address], [place], [address], 3 03:08:02 CBC 2022 023 [facility], [address], [place], [address], 3 03:08:04 Referral dermatol ogist referral - Patient has appt 07/10/19 24 2023 024 MAKEDA Neil MD, [address] [facility], [address] , [place], [address], 4 11:30:35 Procedures None recorded . Surgeries None recorded . Imaging CT, sinuses, w/wo contrast [address] [facility] (Radiology), [address] [facility] , [place], [address], 4 09:28:26 XR, lumbosac ral spine, 2 or 3 view [address], [address] [place] [address] [address], [place], [address], 3 14:11:40 XR, hip, unilater al, 2 or 3 view 2022 023 [facility], [facility] [address], [place], [address], 3 11:13:10 Medication Orders amoxicil vinay 875 mg-potas sium clavulan ate 125 mg tablet 2023 024 [facility] #[id number], [address] [facility], [place], [place], [id number], 4 11:39:54 fluticas one propiona te 50 mcg/actu ation nasal spray,dixon spension 2022 023 [facility] #[id number], [address] , [place], [place], [id number], 4 10:43:56 ipratrop ium bromide 21 mcg (0.03 %) nasal spray 2022 023 [facility] #[id number], [address] [facility], [place], [place], [id number], 4 10:44:01 Patient TargetsNo targets recorded. Patient Instructions Encounter Date Encounter Id Patient Instructions Last Modified By Organization Details Last Modified Time 12/13/2022 [id number] - Avoid heavy lifting and over-exertion. - Avoid bed-rest do some gentle stretching and continue with normal activities. - Use ice to relieve pain, 15 minutes every 2 4 hours. - Use heat to relax muscles, 15 minutes every 2 4 hours. - Sleep on a firm surface and avoid lying on the sofa. Not available 12/13/2022 15:38:12 obtain xray, reji n pending results Not available 12/13/2022 15:38:20 01/17/2023 [id number] neck strain: car e instructions Not available 01/17/2023 14:25:19 gastroesophageal reflux disease (GERD): care instructions Not available 01/17/2023 14:25:08 seasonal allergi es: care instructions Not available 01/17/2023 14:25:08 Increase intake of fresh fruits, and vegetables. Avoid packaged foods and fast foods. Follow a low salt diet, drink at least 8-10 8oz glasses of water a day, exercise most days of the week. Take all medications as prescribed. Keep appointments with PCP and all specialists. Not available 01/17/2023 14:24:50 follow up as dexter wilcox, yearly to keep established with provider Not available 01/17/2023 14:25:05 03/16/2023 [id number] sore throat: car e instructions Not available 03/16/2023 11:03:16 upper respirator y infection (cold): care instructions Not available 03/16/2023 11:05:18 Mucinex and othe r OTC cold/cough remedies are fine to take, increase fluids and have good handwashing. Get plenty of rest. Not available 03/16/2023 11:04:06 follow up as needed Not availa ble 03/16/2023 11:04:12 05/31/2023 [id number] Quitting Tobacco : Care Instructions Not available 05/31/2023 11:08:13 Continue to cut back on smoking. Not available 05/31/2023 11:08:51 follow up as needed Not availa ble 05/31/2023 11:09:01 07/03/2023 [id number] Take all antibio tics prescribed to you. If any fever or increase in pain, call/return to office. Not available 07/03/2023 11:40:48 Plan pending imaging results. f/u as needed DWP barriers to care: none Not available 07/03/2023 11:40:57 Reason for Referral Scheduling Manager Referral for P igmented skin lesion of uncertain nature Patient has appt 07/10/2023 Referring Physician: Yanet Ortega, Family Medicine, Encounter Date: 05/31/2023 Results Created Date Observation Date Name Description Value Unit Range Abnormal Flag Note LastModifiedBy Organization Detail LastModifiedTime 01/18/20 23 01/17/2023 LIPID PANEL cholesterol, total 175 mg/dL 100-19 9 Not Available [facility] [address] [place], [address], 01/18/2023 03:08:02 01/18/20 23 01/17/2023 LIPID PANEL triglyceride s 240 mg/dL 0-149 above high normal Not Available [facility] [address] [place] [address], [address], 01/18/2023 03:08:02 01/18/20 23 01/17/2023 LIPID PANEL HDL cholesterol 39 mg/dL 40-999 below low normal Not Available [facility] [address] [place] [address], [address], 01/18/2023 03:08:02 01/18/20 23 01/17/2023 LIPID PANEL VLDL cholesterol yaron 48 mg/dL 5-40 above high normal Not Available [facility] [address] [place] [address], [address], 01/18/2023 03:08:02 01/18/20 23 01/17/2023 LIPID PANEL LDL chol calc (nih) 123 mg/dL 0-99 above high normal Not Available [facility] [address] [place] [address], [address], 01/18/2023 03:08:02 01/18/20 23 01/17/2023 COMP. METAB OLIC PANEL (14) glucose 65 mg/dL 70-99 below low normal Not Available [facility] [address] [place] [address], [address], 01/18/2023 03:08:03 01/18/20 23 01/17/2023 COMP. METAB OLIC PANEL (14) BUN 10 mg/dL 6-24 Not Available [facility] [address] [place] [address], [address], 01/18/2023 03:08:03 01/18/20 23 01/17/2023 COMP. METAB OLIC PANEL (14) creatinine 1.00 mg/dL 0.76-1 .27 Not Available [facility] [address] [place] [address], [address], 01/18/2023 03:08:03 01/18/20 23 01/17/2023 COMP. METAB OLIC PANEL (14) eGFR 95 >=60 Units for eGFR value s are mL/mi n/1.7 3 The eGFR Calcu latio n has not been valid ated for patie nts under the age of 18. If test resul ts are displ ayed for a patie nt under the age of 18, disre cathi that value . Not Available [facility] [address] [place] [address], [address], 01/18/2023 03:08:03 01/18/20 23 01/17/2023 COMP. METAB OLIC PANEL (14) BUN/creatini ne ratio 10 9-20 Not Available [facility] Department [address] [place] [address], [address], 01/18/2023 03:08:03 01/18/20 23 01/17/2023 COMP. METAB OLIC PANEL (14) sodium 141 mmol/ L 134-14 4 Not Available [facility] [address] [place] [address], [address], 01/18/2023 03:08:03 01/18/20 23 01/17/2023 COMP. METAB OLIC PANEL (14) potassium 4.5 mmol/ L 3.5-5. 2 Not Available [facility] [address] [place] [address], [address], 01/18/2023 03:08:03 01/18/20 23 01/17/2023 COMP. METAB OLIC PANEL (14) chloride 101 mmol/ L 96-106 Not Available [facility] [address] [place] [address], [address], 01/18/2023 03:08:03 01/18/20 23 01/17/2023 COMP. METAB OLIC PANEL (14) carbon dioxide, total 28 mmol/ L 20-29 Not Available [facility] [address] [place] [address], [address], 01/18/2023 03:08:03 01/18/20 23 01/17/2023 COMP. METAB OLIC PANEL (14) calcium 9.9 mg/dL 8.7-10 .2 Not Available [facility] [address] [place], [address], 01/18/2023 03:08:03 01/18/20 23 01/17/2023 COMP. METAB OLIC PANEL (14) protein, total 6.8 g/dL 6.0-8. 5 Not Available [facility] [address] [place], [address], 01/18/2023 03:08:03 01/18/20 23 01/17/2023 COMP. METAB OLIC PANEL (14) albumin 4.7 g/dL 4.1-5. 1 Not Available [facility] [address] [place], [address], 01/18/2023 03:08:03 01/18/20 23 01/17/2023 COMP. METAB OLIC PANEL (14) globulin, total 2.1 g/dL 1.5-4. 5 Not Available [facility] [address] [place], [address], 01/18/2023 03:08:03 01/18/20 23 01/17/2023 COMP. METAB OLIC PANEL (14) A/G ratio 2.2 1.2-2. 2 Not Available [facility] [address] [place], [address], 01/18/2023 03:08:03 01/18/20 23 01/17/2023 COMP. METAB OLIC PANEL (14) bilirubin, total 0.3 mg/dL 0.0-1. 2 Not Available [facility] [address] [place], [address], 01/18/2023 03:08:03 01/18/20 23 01/17/2023 COMP. METAB OLIC PANEL (14) alkaline phosphatase 76 IU/L 44-121 Not Available [facility] [address] [place], [address], 01/18/2023 03:08:03 01/18/20 23 01/17/2023 COMP. METAB OLIC PANEL (14) AST (SGOT) 18 IU/L 0-40 Not Available [facility] Department [address] [place] [address], [address], 01/18/2023 03:08:03 01/18/20 23 01/17/2023 COMP. METAB OLIC PANEL (14) ALT (SGPT) 20 IU/L 0-44 Not Available [facility] Department [address] [place], [address], 01/18/2023 03:08:03 01/18/20 23 01/17/2023 CBC, NO DIFFE RENTI AL/PL ATELE T WBC 11.6 x10e3 /uL 3.4-10 .8 above high normal Not Available [facility] [address] [place] [address], [address], 01/18/2023 03:08:03 01/18/2001/17/2023 CBC, NO DIFFE RENTI AL/PL ATELE T RBC 5.47 x10e6 /uL 4.14-5 .80 Not Available [facility] [address] [place] [address], [address], 01/18/2023 03:08:03 01/18/2001/17/2023 CBC, NO DIFFE RENTI AL/PL ATELE T hemoglobin 15.8 g/dL 13.0-1 7.7 Not Available [facility] [address] [place] [address], [address], 01/18/2023 03:08:03 01/18/2001/17/2023 CBC, NO DIFFE RENTI AL/PL ATELE T hematocrit 46.8 % 37.5-5 1.0 Not Available [facility] [address] [place] [address], [address], 01/18/2023 03:08:03 01/18/20 23 01/17/2023 CBC, NO DIFFE RENTI AL/PL ATELE T MCV 86 fL 79-97 Not Available [facility] [address] [place], [address], 01/18/2023 03:08:03 01/18/2001/17/2023 CBC, NO DIFFE RENTI AL/PL ATELE T MCH 28.9 pg 26.6-3 3.0 Not Available [facility] [address] [place], [address], 01/18/2023 03:08:03 01/18/2001/17/2023 CBC, NO DIFFE RENTI AL/PL ATELE T MCHC 33.8 g/dL 31.5-3 5.7 Not Available [facility] [address] [place], [address], 01/18/2023 03:08:03 01/18/20 23 01/17/2023 CBC, NO DIFFE RENTI AL/PL ATELE T RDW 12.1 % 11.5-1 4.5 Not Available [facility] [address] [place], [address], 01/18/2023 03:08:03 01/18/2001/17/2023 CBC, NO DIFFE RENTI AL/PL ATELE T NRBC 0 % 0-0 Not Available [facility] [address] [place], [address], 01/18/2023 03:08:03 01/18/2001/18/2023 TSH RFX ON ABNOR MAL TO FREE T4 TSH 1.300 uIU/m L 0.450- 4.500 Not Available [facility] ([facility]) [address] [facility], [place], [address], 01/18/2023 08:29:07 03/16/19 24 03/19/2023 BETA STREP GP A CULTU RE beta strep gp A culture Negati ve Refer ence Range : Negat christiano Not Available [facility] ([facility]) [address] [facility], [place], [address], 03/19/2023 03:12:32 03/16/19 24 03/16/2023 rapid strep group A, throa t Strep negati ve Not Available In-Office Order Internal Use Only DO Not Attach Compendium DO Not Attach Compendium, Do Not Delete/merge, [id number] 03/16/2023 11:03:09 03/16/19 24 03/16/2023 rapid flu (A+B) Flu A negati ve Not Available In-Office Order Internal Use Only DO Not Attach Compendium DO Not Attach Compendium, Do Not Delete/merge, [id number] 03/16/2023 11:03:12 03/16/19 24 03/16/2023 rapid flu (A+B) Flu B negati ve Not Available In-Office Order Internal Use Only DO Not Attach Compendium DO Not Attach Compendium, Do Not Delete/merge, [id number] 03/16/2023 11:03:12 03/16/19 24 03/16/2023 rapid SARS CoV 2 Ag, QL IA, respi rator y speci men rapid SARS CoV 2 Ag, QL IA, respiratory specimen negati ve Not Available In-Office Order Internal Use Only DO Not Attach Compendium DO Not Attach Compendium, Do Not Delete/merge, [id number] 03/16/2023 11:03:10 12/15/19 23 12/13/2022 XR, hip, unila teral , 2 or 3 view No observ ation record ed. [email or web address] [facility] [address], [place], [address], 12/14/2022 14:10:27 Result Notes None recorded. Problems Name Problem SNOMED Code Status Onset Date Resolution Date Notes Provider Name and Address Organization Details Recorded Time Gastroes ophageal reflux disease without esophagi tis 949589561 Active 2018 Yanet Ortega APN, DRAWING SUPERVISOR-C Attn: Angie davidson[address] [facility], [place], [address], [place] - [facility] 9 23:11:29 History of polyp of colon 858711103 Active 2018 Yanet Ortega APN, DRAWING SUPERVISOR-C Attn: Angie davidson,[address] [facility], [place], [address], [place] [facility] 9 23:11:31 Pain of multiple joints 56976839 Active 2018 Yanet Ortega APN, DRAWING SUPERVISOR-C Attn: Angie davidson,[address] [facility], [place], [address], [place] [facility] 9 23:11:35 Sinusiti s 82239503 Completed 06/19/2018 Valencia Mancera PA-C Attn: Angie davidson,[address] [facility], [place], [address], [place] [facility] 9 14:09:23 Pain of elbow region 83623928 Completed 06/19/2018 Removal Reason: resolved Valencia Mancera PA-C Attn: Angie davidson,[address] [facility], [place], [address], [place] [facility] 9 14:13:41 Lumbar radiculo elvis 487581019 Active 2020 Yanet Ortega APN, FNP-C Attn: Angie davidson,[address] [facility], [place], [address], [place] [facility] 1 10:50:35 Increase d frequenc y of urinatio n 253395642 Active 2020 Yanet Ortega APN, FNP-C Attn: Angie davidson,[address] [facility], [place], [address], [place] [facility] 1 10:50:36 Tobacco user 735047842 Active Poonam benson [place] - [facility] 6 14:51:33 Lesion of lip 833164578 Completed 08/12/2018 Valencia Mancera PA-C Attn: Angie davidson,[address] [facility], [place], [place], [address] [place] [address], [place] [facility] 9 11:49:40 Infectio n of tooth 067544555 Active 2020 Yanet Ortega APN, DRAWING SUPERVISOR-C Attn: Angie davidson,[address] [facility], [place], [place], [address] [place] [address], [place] [facility] 1 15:58:42 Dizzines s 212662926 Completed 08/12/2018 Valencia Mancera PA-C Attn: Angie davidson,[address] [facility], [place], [place], [address] [place] [address], [place] [facility] 9 11:49:29 Contact dermatit is 50161260 Completed 06/19/2018 Removal Reason: resolved Valencia Mancera PA-C Attn: Angie davidson,[address] [facility], [place], [place], [address] [place] [address], [place] [facility] 9 14:13:23 Acid reflux 355673652 Completed 06/19/2018 Removal Reason: resolved Valencia Mancera PA-C Attn: Angie davidson,[address] [facility], [place], [place], [address] [place] [address], [place] [facility] 9 14:12:07 Foot callus 410275352 Completed 06/19/2018 Removal Reason: resolved Valencia Mancera PA-C Attn: Angie davidson,[address] [facility], [place], [place], [address] [place] [address], [place] [facility] 9 14:12:53 Viral pharyngi tis 3280913 Completed 06/19/2018 Valencia Mancera PA-C Attn: Angie davidson,[address] [facility], [place], [place], [address] [place] [address], [place] [facility] 9 14:09:12 Seasonal allergic rhinitis 723517018 Active Poonam Velez null, [place] - [facility] 6 12:09:48 Backache 335542002 Active Poonam Velez [facility] 6 12:09:48 Conjunct ivitis 9848096 Completed 06/19/2018 Valencia Mancera PA-C Attn: Angie davidson,[address] [facility], [place], [address], [facility] 9 14:09:35 Apocrine gland cyst 13547703 Completed 08/12/2018 Valencia Mancera PA-C Attn: Angie davidson,[address] [facility], [place], [address], [facility] 9 11:49:35 Problem Notes None recorded. Procedures Surgical History Date Name Laterality Status Provider Name and Address Organization Details Recorded Time Hernia Repair completed [facility] 04/09/2014 09:29:41 Other completed [facility] 04/09/2014 09:29:41 Imaging Results None recorded. Procedure Notes None recorded. Medical Equipment None Reported. Allergies Allergen ID Allergen Name Allergen Category Reaction Reaction Severity Criticality Documentation Date Start Date Code Code System Note Provider Name and Address Organization Details Recorded Time [id number] Aleve medicatio n edema severe Not available 12/14/2020 84379 1 RxNorm Brynn Hammond MA [facility] 15:25:26 Medications Name Sig Start Date Stop Date Status Note LastModified by Organization Details LastModified Time amox/k clav tab 500mgamoxi cillin/cla vulanate potassium active Not Available Not Available No t Available ciprofloxa patt hcl 0.3 % soln active Not Available Not Available N ot Available triamcinol one acetonide 0.5 % crea active Not Available Not Available N ot Available amoxicilli n cap 500mgamoxi cillin active Not Available Not Available Not Available cyclobenza jessenia 10 mg tablet 02/03 completed Not Available Not Available Not Available amoxicilli n 500 mg capsule TAKE 1 CAPSULE BY MOUTH EVERY 8 HOURS FOR 7 DAYS 04/26 completed Not Available Not Available Not Available prednisone 10 mg tablet Take by mouth as directed :Week 1: 4 tablets per dayweek 2: 2 tablets per dayweek 3: 1 tablet per day 03/16 completed Not Available Not Available Not Available triamcinol one acetonide 0.5 % topical cream APPLY A THIN LAYER TO THE AFFECTED AREA(S) BY TOPICAL ROUTE 2 TIMES PER DAY TO AFFECTED AREA 02/10 completed Not Available Not Available Not Available cetirizine 10 mg tablet TAKE 1 TABLET BY MOUTH DAILY 12/13 completed Not Available Not Available Not Available ibuprofen 800 mg tablet Take 1 tablet every 8 hours by oral route with meals. 07/09 completed Not Available Not Available Not Available Lidocaine Viscous 2 % mucosal solution 02/03 completed Not Available Not Available Not Available ranitidine 300 mg tablet Take 1 tablet every day by oral route at bedtime. 08/12 completed Not Available Not Available Not Available ibuprofen 200 mg capsule Take 2 capsules as needed by oral route. 04/26 completed Not Available Not Available Not Available prednisone 20 mg tablet TAKE 2 TABLETS BY MOUTH DAILY FOR 5 DAYS 05/30 completed Not Available Not Available Not Available penicillin V potassium 500 mg tablet TAKE 1 TABLET BY MOUTH EVERY 8 HOURS FOR 7 DAYS 02/03 completed Not Available Not Available Not Available acetaminop hen 300 mg-codeine 30 mg tablet TAKE 1 TABLET BY MOUTH EVERY 6 HOURS NEEDED FOR PAIN 05/17 completed Not Available Not Available Not Available sulfametho xazole 800 mg-trimeth oprim 160 mg tablet TAKE 1 TABLET BY MOUTH EVERY 12 HOURS FOR 7 DAYS 11/23 completed Not Available Not Available Not Available triamcinol one acetonide 0.1 % topical cream APPLY A THIN LAYER TO THE AFFECTED AREA(S) BY TOPICAL ROUTE 2 TIMES PER DAY 08/03 completed Not Available Not Available Not Available amoxicilli n 500 mg tablet TAKE 1 TABLET BY MOUTH EVERY 12 HOURS 08/30 completed Not Available Not Available Not Available ofloxacin 0.3 % ear drops INSTILL 5 DROPS TO RIGHT EAR TWICE DAILY FOR 7 DAYS 08/30 completed Not Available Not Available Not Available ciprofloxa patt 0.3 % eye drops INSTILL 1 DROP INTO AFFECTED EYE(S) BY OPHTHALM IC ROUTE EVERY 2 HOURSWHI LE AWAKE FOR 2 DAYS THEN 1 DROP EVERY 4 HRS WHILE AWAKE FOR 5 DAYS 10/21 completed Not Available Not Available Not Available ranitidine 150 mg tablet Take 1 tablet twice a day by oral route as directed . 06/19 completed Not Available Not Available Not Available promethazi ne 25 mg tablet 07/09 completed Not Available Not Available Not Available nicotine 21 mg/24 hr daily transderma l patch Apply 1 patch every day by transder mal route. 12/04 completed Not Available Not Available Not Available docusate sodium 100 mg capsule take one tab PO daily x 2 weeks then use as needed 08/12 completed Not Available Not Available Not Available buspirone 7.5 mg tablet Take 1 tablet every day by oral route at bedtime. 08/12 completed Not Available Not Available Not Available zinc gluconate 50 mg tablet TAKE 1 TABLET BY MOUTH EVERY DAY 01/17 completed Not Available Not Available Not Available montelukas t 10 mg tablet TAKE 1 TABLET BY MOUTH EVERY DAY AT BEDTIME 03/16 completed Not Available Not Available Not Available diclofenac sodium 50 mg tablet,del ayed release Take 1 tablet twice a day by oral route as needed. 07/09 completed Not Available Not Available Not Available methylpred nisolone 4 mg tablets in a dose pack Take 1 dose pk by oral route. 09/15 completed not taking Not Available Not Available Not Available fluticason e propionate 50 mcg/actuat ion nasal spray,susp ension SHAKE LIQUID AND USE 1 SPRAY IN EACH NOSTRIL TWICE DAILY 05/30 completed Not Available Not Available Not Available clotrimazo le 1 % topical cream SHADY EXT AA BID 02/10 completed Not Available Not Available Not Available ipratropiu m bromide 21 mcg (0.03 %) nasal spray [place] by intranas al route for 44 days. 05/30 completed Not Available Not Available Not Available loratadine 10 mg tablet TAKE 1 TABLET BY MOUTH EVERY MORNING 12/04 completed Not Available Not Available Not Available ipratropiu m bromide 0.02 % solution for inhalation 05/30 completed Not Available Not Available Not Available amoxicilli n 875 mg-potassi um clavulanat e 125 mg tablet TAKE 1 TABLET BY MOUTH EVERY 12 HOURS FOR 7 DAYS active Not Available Not Available No t Available amoxicilli n 500 mg-potassi um clavulanat e 125 mg tablet TAKE 1 TABLET BY MOUTH EVERY 12 HOURS 07/20 completed Not Available Not Available Not Available neomycin-p olymyxin-h ydrocort 3.5 mg-10,000 unit/mL-1 % ear drops,susp INSTILL 4 DROPS IN AFFECTED EAR(S) THREE TIMES DAILY FOR 7 DAYS 12/13 completed Not Available Not Available Not Available chlorhexid ine gluconate 0.12 % mouthwash RINSE AND SPIT 15ML BY MOUTH TWICE DAILY NEEDED 12/13 completed Not Available Not Available Not Available Vitals Date Recorded Body height Body mass index (BMI) Body weight Oxygen saturation Oxygen saturation in Arterial blood by Pulse oximetry Heart rate Respiratory rate Body temperature Systolic blood pressure Diastolic blood pressure Provider Name and Address Organization Details Last Updated DateTime 4 177.8 cm 23 kg/m2 97285.7 8 g 99 % 99 % 80 /min 16 /min 97.5 [degF] 134 mm[Hg] 86 mm[Hg] Coretta Velásquez [facility] 4 10:50:33 Date Recorded Body height Body mass index (BMI) Body weight Oxygen saturation Oxygen saturation in Arterial blood by Pulse oximetry Heart rate Respiratory rate Body temperature Systolic blood pressure Diastolic blood pressure Provider Name and Address Organization Details Last Updated DateTime 4 177.8 cm 23.1 kg/m2 02772.3 7 g 98 % 98 % 88 /min 16 /min 97.1 [degF] 120 mm[Hg] 78 mm[Hg] Coretta Velásquez [facility] 4 10:45:53 Date Recorded Body height Body mass index (BMI) Body weight Oxygen saturation Oxygen saturation in Arterial blood by Pulse oximetry Heart rate Respiratory rate Body temperature Systolic blood pressure Diastolic blood pressure Provider Name and Address Organization Details Last Updated DateTime 4 177.8 cm 23.1 kg/m2 16560.3 7 g 99 % 99 % 80 /min 16 /min 98.1 [degF] 114 mm[Hg] 80 mm[Hg] Coretta Velásquez [facility] 4 11:23:25 Date Recorded Body height Body mass index (BMI) Body weight Oxygen saturation Oxygen saturation in Arterial blood by Pulse oximetry Heart rate Respiratory rate Body temperature Systolic blood pressure Diastolic blood pressure Provider Name and Address Organization Details Last Updated DateTime 3 177.8 cm 22.1 kg/m2 76935.2 2 g 99 % 99 % 90 /min 16 /min 98.7 [degF] 124 mm[Hg] 74 mm[Hg] Coretta Christen [facility] 3 15:30:08 Date Recorded Body height Body mass index (BMI) Body weight Oxygen saturation Oxygen saturation in Arterial blood by Pulse oximetry Heart rate Respiratory rate Body temperature Systolic blood pressure Diastolic blood pressure Provider Name and Address Organization Details Last Updated DateTime 3 177.8 cm 23 kg/m2 68318.7 8 g 97 % 97 % 84 /min 16 /min 98 [degF] 124 mm[Hg] 84 mm[Hg] Coretta Velásquez [facility] 3 14:05:34 Social History Question Answer Notes LastModified by [employer] ion Details LastModified Time Tobacco Smoking Status Current Every Day Smoker Karon Nicegan [facility] 04/09/2014 09:29:41 Do You Have An Advance Directive? No Information not available 06/19/2018 Are You Blind Or Do You Have Difficulty Seeing? No Information not available 07/05/2020 What Is Your Level Of Caffeine Consumption? Heavy Soda, Sweet Tea [email or web address] Information not available 12/13/2022 How Much Tobacco Do You Chew? None [email or web address] Information not available 04/09/2014 In The 14 Days Before Symptom Onset, Have You Had Close Contact With A Laboratory-confir med COVID-19 While That Case Was Ill? No Information not available 06/24/2019 In The 14 Days Before Symptom Onset, Have You Had Close Contact With A Person Who Is Under Investigation For COVID-19 While That Person Was Ill? No Information not available 06/24/2019 Have You Been To An Area Known To Be High Risk For COVID-19? No Information not available 06/24/2019 Are You Deaf Or Do You Have Serious Difficulty Hearing? No Information not available 07/05/2020 What Type Of Diet Are You Following? REGULAR Information not available 05/10/2015 Which Illicit Or Recreational Drugs Have You Used? None Information not available 06/19/2018 Education 12 Information no t available 02/11/2020 Are There Any Guns Present In Your Home? No Information not available 06/19/2018 Hard Of Hearing Or Deaf In One Or Both Ears? No Information not available 07/10/2019 Legally Blind In One Or Both Eyes? No Information no t available 07/10/2019 Marital Status Informati on not available 05/10/2015 What Was The Date Of Your Most Recent Tobacco Screening? 07/03/2023 Information not available 07/03/2023 Do You Have Any Pets? Yes Cat And Dog [email or web address] Information not available 08/30/2021 What Is Your Relationship Status? Information not available 05/17/2020 Do You Use Your Seat Belt Or Car Seat Routinely? Yes Information not available 05/17/2020 Seat Belts Used Routinely Yes Information not available 06/19/2018 Are You Sexually Active? Yes Information not available 07/05/2020 Smoke Alarm In Home Yes Information not available 06/19/2018 Do You Have Smoke And Carbon Monoxide Detectors In Your Home? Yes Information not available 05/17/2020 At What Age Did You Start Smoking Tobacco? 19 Information not available 07/10/2019 Are You Passively Exposed To Smoke? Yes Information no t available 05/17/2020 How Much Tobacco Do You Smoke? 0.5 PPD A Little More Information not available 07/03/2023 General Stress Level High Information not available 08/12/2019 Do You Use Sunscreen Routinely? No Information not available 06/19/2018 Has Tobacco Cessation Counseling Been Provided? Yes [email or web address] Information not available 06/19/2018 On What Date Was Tobacco Cessation Counseling Provided? 03/16/2023 Information not available 03/16/2023 How Many Years Have You Smoked Tobacco? 27 03/16/23 Information not available 03/16/2023 Sex: Male Functional Status Question Answer Note LastModified by Organization Details LastModified Time Do you use any illicit or recreational drugs? No hx pastora [email or web address] Information not available 12/13/2022 Do you or have you ever used any other forms of tobacco or nicotine? No [email or web address] Information not available 07/05/2020 What is your level of alcohol consumption? None [email or web address] Information not available 12/13/2022 Do you or have you ever used smokeless tobacco? Never used smokeless tobacco Information not available 12/04/2018 Are you currently employed? No Information not available 01/17/2023 Are you able to care for yourself? Yes [email or web address] Information not available 07/05/2020 Do you or have you ever used e-cigarettes or vape? Never used electronic cigarettes Information not available 12/04/2018 What is your exercise level? None Information not available 03/16/2023 What type of noise exposure are you exposed to? noExposureToExcessiveN oise [email or web address] Information not available 08/30/2021 Mental Status Question Answer Note LastModified by Organization D etails LastModified Time Do you feel stressed (tense, restless, nervous, or anxious, or unable to sleep at night)? [id number] polly Information not available 05/17/2020 Family History Relationship Description Onset Age of this Age Resolved Age Notes LastModified by Organization Details LastModified Time Father Harmful pattern of use of alcohol [email or web address] Not available 04/20 14:37:08 Maternal Grandmother Diabetes mellitus rreiter Not available 2018 13:54:43 Maternal Grandmother Hypercholest erolemia rreiter Not available 2018 13:54:52 Maternal Grandmother Hypertensive disorder rreiter Not available 2018 13:55:01 Maternal Uncle Malignant tumor of colon [email or web address] Not available 02/03 15:35:48 Maternal Uncle Cerebrovascu lar accident [email or web address] Not available 15:27:39 Maternal Uncle Myocardial infarction [email or web address] Not available 11/20 15:27:56 Maternal Uncle Myocardial infarction [email or web address] Not available 11/20 15:27:57 Medical History Condition Response Coronary Artery Disease N Other N Atrial Fibrillation N High Blood Pressure N Thyroid Problems N Kidney or Bladder Problems N GI Problems N Depression N COPD N Blood Clots N Eating Disorder N Skin Problems N Anemia N Heart Attack (GA) N Anxiety Disorder N Diabetes N Muscle, Joint, or Bone Problems Y Seizures/Epilepsy N Acid Reflux (GERD) Y Cancer N Stroke N Asthma N Allergies Y ADHD N Substance Abuse N High Cholesterol N Hepatitis N Liver Disease N Schizophrenia N Headaches N Heart Failure N Osteoporosis N Immunizations Vaccine Type Date Status Note Provider Name and Address Organization Details Recorded Time Influenza, split virus, quadrivalent, preservative 12/05/19 19 cancelled patient objection Not Available [facility] 03/08/2019 02:38:15 tetanus toxoid, unspecified formulation 08/19/19 14 completed LIZ Cramer [facility] [place] [facility] 05/10/2015 13:53:56 Influenza, split virus, quadrivalent, preservative 02/11/20 20 cancelled patient objection Yanet Ortega APN, DRAWING SUPERVISOR-C Attn: [employer],[address] [place], [address], [facility] 02/11/2020 12:40:50 Past Encounters Encounter ID Performer Location Encounter Start Date Encounter Closed Date Diagnosis/Indication Diagnosis SNOMED-CT Code Diagnosis ICD10 Code Diagnosis Note [id number] [facility] [address] [place] [address] 04/09/2014 08:52:54 04/09/2014 12:25:08 Sinusitis 86186154 Amoxicilli n 500 mg po tid for 10 days. Advised saline nasal spray and steam inhalation . Advised patient to quit smoking. Pain of elbow region 11916729 Likely sprain. c/o pain when he lifts any weight. Advised patient to use otc Ibuprofen, elbow brace and rest. Tobacco user 219106520 A dvised patient to quit smoking. Lesion of lip 583066864 2 Hyperpigme nted macular spots on the upper lip mucosal side for 3 days .No pain,no bleeding. Advised patient observe the spots.Advi se to come for follow up if they are increasing in size ,any bleeding or if they are not improving. [id number] MD Savanna Suarez (Adult Med) [address] [place] [address] 08/06/2014 09:06:03 08/06/2014 11:05:18 Sinusitis 70418730 Patient was treated with amoxicilli n in March.r ecurrence of symptoms. Advised saline nasal spray and steam inhalation . Advised patient to quit smoking. Augmentin 875 mg po bid for 10 days. Dizziness 354210720 Tammy ent is c/o intermitte nt diziness and tiredness and fatigue. Will do labs cbc,cmp,ts h. Tobacco user 204627706 A dvised patient to quit smoking. [id number] MD Savanna Suarez (Adult Med) [address] [place] [address] 08/31/2014 09:29:19 08/31/2014 10:34:02 Contact dermatitis 05711300 Patient has rash over the forearms and mild erythema over the scrotum.No lesions over the face. Triamcinol one 0.5% cream apply bid. Advised patient to take otc claritin 10 mg po daily and Benadryl 25 mg po at bed time. Follow up if the skin rash is not improving. [id number] MD Skye Gonzalezhalto (Adult Med) [address] [place] [address] 02/17/2015 09:03:52 02/18/2015 16:05:23 Sinusitis 40983328 J01.81 [id number] MD Rhett Brothers (Fam Med) [address] [place] [address] 05/10/2015 13:44:47 05/10/2015 14:53:37 Acid reflux 736588485 K21.9 Tobacco user 220495203 Z 72.0 Foot callus 543021523 L8 4 Adult heal th examination 655903388 Z00.01 [id number] MD Rhett Brothers (Fam Med) [address] [place] [address] 08/06/2015 11:04:35 08/06/2015 13:09:23 Viral pharyngitis 1072316 J02.8 Seasonal a llergic rhinitis 466452609 J30.2 Backache 630126604 M54.9 Conjunctivitis 9779996 H 10.9 [id number] Poonam Velez MD Rhett (Fam Med) [address] [place] [address] 10/22/2015 09:28:33 10/22/2015 10:02:05 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 Recommend antibacter ial soap, hot compresses and avoid shaving or deodorant to area and monitor for growth, increased pain, fever, chills, etc. [id number] [facility] [address] [place] [address] 06/19/2018 13:30:41 06/24/2018 11:33:32 Adult health examination 058201778 Z00.00 43yo male here to establish with a PCP. He is reluctant to take any daily medication s. Seasonal a llergic rhinitis 015745888 J30.2 Advised if worsens to start OTC zyrtec or claritin, etc. Pain of mu ltiple joints 42961454 M25.50 r/o connective tissue disease since pains are diffuse. Given handout for back & neck stretches. Advised on daily routine of stretching for muscle tightness/ spasms. Trial of different NSAID. Generalize d anxiety disorder 56116228 F41.1 patient's feels his anxiety is causing issues at home since he makes her more anxious while she is trying to take care of kids. He reports he has been anxious most of his life. It does prevent him from doing things at times or causes excessive worry. Chronic constipation 236 818635 K59.09 Advised on high fiber diet, add fiber supplement . Use daily stool softener until stools more regular. Hemorrhoids 23408576 K64 .9 discussed use of Preparatio n H, treat chronic constipati on. Cholesterol screening 27 5131292 Z13.220 Gastroesop hageal reflux disease without esophagitis 001870969 K21.9 discussed diet, start medication at bedtime to help w/ daytime nausea khris first thing in aM. Left inguinal hernia 236 022577 K40.90 s/p mesh repair few years ago. He continues to have pain even with ejaculatio n. May need to see different gen surgeon or if it persists. Tobacco user 348988003 Z 72.0 he is reluctant to try medication for this. will try to reduce/isabel t on own. [id number] MD Savanna Humphrey (Adult Med) [address] [place] [address] 08/12/2018 11:27:03 08/13/2018 10:57:09 Seasonal allergic rhinitis 955447573 J30.2 no longer taking anti-hista mine per initial visit. restart along w/ nasal steroid, continue taking throughout allergy season. Tobacco user 476404999 Z 72.0 he is interested in quitting, will try patch, can't chew gum, no more teeth Otalgia of left ear 1089 950807 059845 H92.02 no infection noted, possible eustachian tube dysfunctio n w/ allergy sxs. [id number] MD Savanna Lemus (Adult Med) [address] [place] [address] 12/04/2018 13:30:52 12/05/2018 10:45:05 Influenza vaccination declined 273569815 Z28.21 refused Tobacco user 301607289 Z 72.0 Smoking cessation encouraged . Seasonal a llergic rhinitis 967666262 J30.2 Advised if worsens to start OTC zyrtec or claritin, etc. Pain of mu ltiple joints 16218407 M25.50 r/o connective tissue disease since pains are diffuse. encouraged back & neck stretches. dwp to take diclofenac that he has not yet tried, will refill rx if that works better than ibu Gastroesop hageal reflux disease without esophagitis 740743530 K21.9 discussed diet, cont medication prn History of polyp of colon 486626941 Z86.010 due for repeat , will send referral [id number] MD Savanna Lemus (Adult Med) [address] [place] [address] 06/24/2019 08:01:00 06/25/2019 14:13:38 Pain of multiple joints 31146436 M25.50 r/o connective tissue disease since pains are diffuse. encouraged back & neck stretches. dwp to take diclofenac that he has not yet tried, will refill rx if that works better than ibu Tobacco user 618302701 Z 72.0 Smoking cessation encouraged . History of polyp of colon 280915709 Z86.010 due for repeat , will send referral when he can go, delayed d/t new job and covid Gastroesop hageal reflux disease without esophagitis 282582777 K21.9 discussed diet, cont medication prn [id number] MD Savanna Lemus (Adult Med) [address] [place] [address] 07/10/2019 08:28:00 07/11/2019 08:08:43 Acute sinusitis 71344579 J01.90 sinus pressure with purulent drainage, start amox Lumbago with sciatica 20 4631078 M54.41 M54.42 pain bilaterall y, medrol dose pack, Strain of back muscle 26 4467212 S39.012A dwp to cont with gentle stretching and cont ice/heat [id number] MD Savanna Lemus (Adult Med) [address] [place] [address] 08/12/2019 13:32:27 08/13/2019 11:28:03 Generalized rash 882039977 R21 papular erythemato us rash, per pt and photos sent; start steroid burst Dysfunctio n of eustachian tube 62918499 H69.93 bilateral TM's with middle ear fluid, cont flonase [id number] MD Savanna Lemus (Adult Med) [address] [place] [address] 09/16/2019 08:19:20 09/17/2019 10:40:04 Intermittent palpitations 883102032 R00.2 no fhx early cad, dwp to go to ER if worse, will start with ekg, dwp referral to cardio as well Dyspnea on exertion 6084 5006 R06.09 dwp need to do testing for copd, advised smoking cessation Contact dermatitis 19017 004 L25.9 intermitte nt rash, possible heat related, rx for topical, dwp keep skin cool and dry [id number] JULISSA Rodriguez NP [employer]emaker [address] [place] [address] 09/24/2019 09:08:13 09/25/2019 09:12:25 Suspected COVID-19 127334384 Z03.818 D/w pt the current pandemic of COVID-19 and call for social isolation in order to blunt the curve and minimize risk and spread. Encouraged patient and family to take restrictio ns seriously. They have verbalized understand ing of such. Viral syndrome 606764305 B34.9 [id number] MD Savanna Lemus (Adult Med) [address] [place] [address] 02/11/2020 08:16:50 02/12/2020 00:18:21 Influenza vaccination declined 578627196 Z28.21 refused Otalgia of right ear 411 0643164 176065 H92.01 pain 3-4 days not improving, no longer using flonase d/t side effects, will send amox [id number] MD Savanna Lemus (Adult Med) [address] [place] [address] 05/17/2020 09:12:01 05/18/2020 09:20:24 Cat scratch injury 271841405 T14.8XXA wound care/hygie ne advised, dwp since neck or above will cover with abx, ok to use uli as well, call if any worsening symptoms [id number] MD Savanna Lemus (Adult Med) [address] [place] [address] 07/05/2020 09:10:11 07/06/2020 11:31:29 Lumbar radiculopathy 275944086 M54.16 -nsaid for inflammati on -will get chiro records -PT eval needed -will start order for MRI, may be on hold for documentat ion, Increased frequency of urination 215921831 R35.0 dwp no burning, just increase frequency, will get labs, plan pending Endocrine/ metabolic screening 691441618 Z13.228 Cholesterol screening 27 8097164 Z13.220 Tobacco user 988912420 Z 72.0 Smoking cessation encouraged . Overweight 264633247 E66 .3 advised low fat, low cholestero l diet, regular exercise and weight reduction. [id number] Yanet Ortega APN, [facility] [address] [place] [address] 12/14/2020 15:03:38 12/20/2020 06:56:03 Infection of tooth 822179769 K04.7 right cheek and upper gums inflamed, will send pcn Tobacco user 769956546 Z 72.0 Smoking cessation encouraged . Pigmented skin lesion 20 2973693 L81.9 Left side groin has dark lesion approx 0.25 cm, not raised, no erythema or discharge; advised pt to monitor and will refer if any changes noticed [id number] MD Savanna Lemus (Adult Med) [address] [place] [address] 02/21/2021 12:59:03 02/22/2021 09:11:25 Acute right otitis media 220825228 H66.91 hx of aom, with lymph nodes enlarged, dwp will send amox. advised f/u if not improved [id number] MD Savanna Lemus (Adult Med) [address] [place] [address] 04/26/2021 15:32:32 04/27/2021 06:46:12 Acute right otitis media 492042981 H66.91 hx of aom, with lymph nodes enlarged, dwp will send augmentin Infection of tooth 35447 8007 K04.7 right cheek and upper gums inflamed, will send abx [id number] MD Savanna Ariza (Adult Med) [address] [place] [address] 08/30/2021 10:13:44 08/31/2021 08:22:40 Pain of right temporomandibular joint 8991883403 0694677 M26.621 soft diet anti-infla mmatories follow up if not improving [id number] MD Savanna Lemus (Adult Med) [address] [place] [address] 10/11/2021 15:42:30 10/12/2021 08:53:36 Increased frequency of urination 258410790 R35.0 dwp no burning, just increase frequency, will get labs, plan pending Infection of tooth 97203 8007 K04.7 right cheek and upper gums inflamed, will send abx Tobacco user 868754816 Z 72.0 Smoking cessation encouraged . [id number] MD Savanna Lemus (Adult Med) [address] [place] [address] 11/23/2021 09:33:24 11/24/2021 12:14:06 Dental abscess 546143328 K04.7 has had teeth pulled now, still getting infection to upper gums, left edematous, will send abx [id number] MD Savanna Lemus (Adult Med) [address] [place] [address] 02/03/2022 15:20:42 02/06/2022 14:04:02 Acute bilateral otitis media 311248072 H66.93 Azael TM erythema and edema/bulg ing Lymphadenopathy 97672108 R59.1 right side of neck, pea sized, dwp abx use [id number] MD Savanna Lemus (Adult Med) [address] [place] [address] 03/10/2022 11:27:40 03/14/2022 14:59:29 Posterior rhinorrhea 37651104 R09.82 start antihistam ine qd Cervical lymphadenopathy 429122128 R59.0 dwp will get US since he has been on several rounds of abx and still has palpable nodes Smoker 39269160 F17.200 Smoking cessation encouraged . [id number] MD Savanna Lemus (Adult Med) [address] [place] [address] 07/20/2022 10:15:46 07/24/2022 10:39:59 Lesion of oral mucosa 5345832456 100663 K13.70 cont oral care with dentist as planned,de ntures?? Contact de rmatitis caused by urushiol from [facility] 108000934 L25.5 papular erythemato us rash; start steroid cream [id number] MD Savanna Lemus (Adult Med) [address] [place] [address] 08/03/2022 11:40:48 08/08/2022 11:10:17 Otitis externa 0546458 H60.333 azael canals inflamed,r x abx dropskeep ears free of water Seasonal a llergic rhinitis 932589185 J30.2 Advised if worsens to start OTC zyrtec or claritin, etc.start singulair Lesion of oral mucosa 10 03429672 730390 K13.70 cont oral care with dentist as planned,de ntures?? Cannabis dependence 8500 5007 F12.20 dwp effects Problem ge tting an erection 999774652 N52.9 dwp stress and cannabis use as possible causes, pt will reduce smoking to see if that helps [id number] MD Savanna Lemus (Adult Med) [address] [place] [address] 12/13/2022 15:14:07 12/19/2022 16:07:09 Lumbar radiculopathy 106781891 M54.16 -nsaid for inflammati on -will get chiro records -PT eval needed -will start order for MRI, may be on hold for documentat ion, -needs xrays by radiology not by chiropract or refer to ortho, Pain of ri ght hip joint 0681384723 07412 M25.551 popping and locking, will get xray as well [id number] MD Savanna Lemus (Adult Med) [address] [place] [address] 01/17/2023 13:24:38 01/18/2023 09:15:08 Strain of neck muscle 976997007 S16.1XXA pt has FROM,advis ed heat, ice, and stretching Gastroesop hageal reflux disease without esophagitis 187637409 K21.9 discussed diet, cont medication prn Seasonal a llergic rhinitis 445656545 J30.2 cont nasal sprays as directed, will refill Adult heal th examination 549621498 Z00.01 Encouraged patient to eat well balanced meals, live active lifestyle and attend routine vision/den joni apts. [id number] MD Savanna Lemus (Adult Med) [address] [place] [address] 03/16/2023 10:30:59 03/20/2023 13:30:10 Sore throat 965015541 J02.9 sore throat for 3 days,rapid negative, will send for culture Upper resp iratory infection 21966584 J06.9 dwp most viral illnesses will clear in 7-10 days, if still symptomati c, then please call or make apt and will give abx at that time [id number] MD Savanna Lemus (Adult Med) [address] [place] [address] 05/31/2023 10:38:47 06/08/2023 09:38:49 Tobacco user 099183799 Z72.0 Smoking cessation encouraged . Pigmented skin lesion of uncertain nature 956092076 L81.9 new lesion, just showed up 3 weeks ago2 mm anderson/brown raised lesion to right side of hairline in scalp/fore head,famil y hx of skin cancer-mom will refer to derm [id number] MD Savanna Lemus (Adult Med) [address] [place] [address] 07/03/2023 11:13:10 07/03/2023 19:33:48 Acute right otitis media 541136390 H66.91 hx of aom, with lymph nodes enlarged,r ight tm inflamed, left with omedwp will send augmentin Recurrent acute otitis media 822877296 H65.199 will send referral once he has new insurance, advised pt to let me know.will go ahead and get CT sinuses to see if that is causing the recurrent [facility] Concerns Section Related Observation LastModified by Organization Detai ls LastModified Time None Recorded Concern Status LastModified by Organization Details LastModified Time None Recorded Advance Directives Directive N: Payers Insurance Date Sequence Insurance Name Policy Number Policy Melgar Covered Member ID Melgar Member ID Guarantor Name 08/29/2021 SLIDING FEE SCHEDULE - DISCOUNT Elliot Cancino 09/11/2019 SLIDING FEE SCHEDULE - DISCOUNT Elliot Cancino 12/03/2020 2 *SELF PAY* Do nald Barak 07/03/2023 [facility] - DOS ON OR AFTER 20 (MEDICAID REPLACEMENT - HMO) Elliot Cancino [id number] Elliot Cancino 07/02/2023 1 MEDICAID-[place]: [facility] Elliot Cancino [id number] Elliot Cancino 05/31/2023 1 [facility] (MEDICAID HMO) Elliot Cancino [id number] Elliot Cancino 05/31/2023 2 [facility] - DOS PRIOR TO 2020 (MEDICAID REPLACEMENT - HMO) Elliot Cancino [id number] Elliot Cancino 05/31/2023 1 [facility] - DOS ON OR AFTER 20 (MEDICAID REPLACEMENT - HMO) Elliot Cancino [id number] Elliot Cancino Notes Date Note Type Note Provider Name and Address Organization Details Recorded Time 12/13/2022 text/html right hip pain that radiated down to foot for 2 days. Pt states he's been lifting and bending heavy objects at work. ibuprofen not helping Yanet Ortega APN, DRAWING SUPERVISOR-C Attn: [employer]ing[address] [facility], [place], [address], [facility] 12/13/2022 15:40:12 01/17/2023 text/html Pt not sure why he is here, thinks it might be for an annual exam c/o possible pulled muscle in shoulder- pain radiates to neck. otc ibuprofen not helping turned his neck and pain in neck down his shoulder, happened yesterday (states he told the MA is did it working out to impress her) rates pain 2-3/10 Yanet Ortega APN, DRAWING SUPERVISOR-C Attn: Accounting[address] [place], [address], [facility] 01/17/2023 23:46:12 03/16/2023 text/html sx started 3 day s ago. otc ibuprofenear pain, sore throat, congestion Yanet Ortega APN, DRAWING SUPERVISOR-C Attn: Accounting[address] [place], [address], [facility] 03/16/2023 11:13:53 05/31/2023 text/html pt has little bu mp on right side of forehead. pt states it occasional hurts. noticed it 3 weeks ago. tried popping it and nothing came out. has family hx of skin cancer-mom, pt admits not wearing hat or sunscreen Yanet Ortega APN, ABHINAV Attn: Accounting[address] [facility], [place], [address], [facility] 05/31/2023 11:09:57 07/03/2023 text/html ear pain causing jaw and right side of neck to hurt. pain started 1 week ago, otc meds do not help, still has pain where his teeth used to be, hopefully getting dental insurance soon so he can see dentist Yanet Ortega APN, ABHINAV Attn: Accounting[address] [facility], [place], [address], [facility] 07/03/2023 17:17:57
[2024-08-05 09:05] LABS: EDUAAPPEAR Clear; EDUABILI Negative (Negative); EDUABLOOD Negative (Negative); EDUACOLOR1 Yellow; EDUAGLUCOSE Negative (Negative); EDUAKETONE Negative (Negative); EDUALEUKO Negative (Negative); EDUANITRATE Negative (Negative); EDUAPH 6.5; EDUAPROTEIN Negative (Negative); EDUAUROBILI 0.2
--- NOTE | 2024-08-05 09:09 | ED.EAR ---
HPI - Ear Problem General Chief complaint: Ear Stated complaint: Right Ear Pain/Urinary Problem Source: patient Mode of arrival: ambulatory Limitations: no limitations History of Present Illness HPI Narrative: Patient is a 49-year-old male who presents to the clinic with right ear pain and burning with urination x 1 day. He has not been taking anything [id number]. Currently rating his ear pain a 5/10. Denies any hearing loss. Denies any concerns for STDs. Related Data Allergies Allergy/AdvReac Type Severity Reaction Status Date / Time naproxen Allergy Swelling Verified 10/18/22 14:45 Review of Systems Review of Systems: CONSTITUTIONAL: Denies malaise, chills, ?or fever. EYES: Denies visual changes, redness, or discharge. ENT: Denies rhinorrhea, congestion, sinus pain, and sore throat. ?Reports right ear pain. CARDIOVASCULAR: Denies chest pain, palpitations, or edema. RESPIRATORY: Denies cough or dyspnea. GASTROINTESTINAL: Denies abdominal pain, nausea, vomiting, diarrhea. : Reports Dysuria. SKIN: Denies rash or itching. MUSCULOSKELETAL: Denies myalgia. NEUROLOGIC: Denies headache. All systems reviewed & are unremarkable except as noted in HPI and below PMFSH Past Medical History Medical History Ear infection Fracture of right hand Surgical History Surgical History History of dental surgery edentulous H/O bilateral inguinal hernia repair Family History Family History Other Cerebrovascular accident Diabetes mellitus Family history of coronary artery disease Social History Social History Smoking packs per day: 1 Smoking cigarettes per day: 20.0 Years smoked: 26 Smoking pack-years: 26.00 Smoking status: Current every day smoker Tobacco type: cigarettes Alcohol intake: never Substance use: unknown Gender identity (if verbalized by the patient): Male Comments At time of signature, I have reviewed and agree with nursing past medical, surgical, social and family history unless otherwise noted. Please see nursing chart for further information. There is no relevant family history pertinent to the presenting complaint. Exam Narrative: GENERAL: Well-appearing, well-nourished, and in no acute distress. HEAD: Normocephalic EYES: PERRLA, conjunctivae clear ENT: Nares clear. Mucous membranes moist. R TM erythematous, bulging and intact; canal not erythematous, no drainage, no tragal tenderness. L TM with normal light reflex. Oropharynx not erythematous without lesions. ?no drooling, no hoarseness, no trismus, uvula midline. NECK: Supple. No lymphadenopathy CHEST: Clear to auscultation, breath sounds equal. No wheezing, rhonchi, rales, or stridor. No respiratory distress, speaks in full sentences. HEART: Regular rate and rhythm. No murmur heard. SKIN: Warm, dry, no rash. NEURO: Alert and oriented x3. PSYCH: Normal mood and affect. Course Course Level of Care: Express Care Visit Vital Signs Vital signs: Vital Signs Temperature 98.2 F 08/05/24 08:56 Pulse Rate 76 08/05/24 08:56 Respiratory Rate 18 08/05/24 08:56 Blood Pressure 148/86 H 08/05/24 08:56 Pulse Oximetry 100 08/05/24 08:56 Oxygen Delivery Room Air 08/05/24 08:56 Temperature 98.2 F 08/05/24 08:56 Pulse Rate 76 08/05/24 08:56 Respiratory Rate 18 08/05/24 08:56 Blood Pressure 148/86 H 08/05/24 08:56 Pulse Oximetry 100 08/05/24 08:56 Oxygen Delivery Room Air 08/05/24 08:56 Reviewed. Medical Decision Making MDM Narrative Medical decision making narrative: Discussed physical exam findings. Amoxicillin for otitis media. Advised supportive measures and signs/symptoms to go to the ER. Pt is appropriate for outpatient treatment and follow up. Differential Diagnosis Differential Diagnosis: otitis externa, TM rupture, foreign body, otitis media, Vital Signs Vital Signs: Vital Signs Temperature 98.2 F 08/05/24 08:56 Pulse Rate 76 08/05/24 08:56 Respiratory Rate 18 08/05/24 08:56 Blood Pressure 148/86 H 08/05/24 08:56 Pulse Oximetry 100 08/05/24 08:56 Oxygen Delivery Room Air 08/05/24 08:56 Temperature 98.2 F 08/05/24 08:56 Pulse Rate 76 08/05/24 08:56 Respiratory Rate 18 08/05/24 08:56 Blood Pressure 148/86 H 08/05/24 08:56 Pulse Oximetry 100 08/05/24 08:56 Oxygen Delivery Room Air 08/05/24 08:56 Lab Data Labs: Lab Results 08/05/24 Range/Units 09:03 POC Urine Color Yellow POC Urine Clarity Clear POC Urine pH 6.5 POC Ur Specif [place] 1.030 POC Urine Protein Negative (Negative) POC Ur Glucose (UA) Negative (Negative) POC Urine Ketones Negative (Negative) POC Urine Blood Negative (Negative) POC Urine Nitrite Negative (Negative) POC Urine Bilirubin Negative (Negative) POC Urine Urobilinogen 0.2 POC U Leukocyte Esteras Negative (Negative) Critical Care Time Critical Care Time Critical Care Time: No Discharge Plan Discharge Clinical Impression: Otitis media Qualifiers: Laterality: right Patient Disposition: Home Condition: Stable Instructions: Antibiotic Form, Ear Infection (ED) Additional Instructions: Take antibiotic as prescribed Recommend Flonase spray and Zyrtec (or Claritin/Natalie) Tylenol every 8 hours as needed for pain Symptomatic treatment includes: rest, fluids, and increase humidity of the air at home. Follow up with your primary care provider in 1 week. Go to the ER for worsening symptoms or concerns. Patient Language: Belarusian Prescriptions: New amoxicillin 875 mg tablet 875 mg PO Q12H 7 Days Qty: 14 0RF Follow-up/Referrals: Milad,Yanet Garcia APN [Primary Care Provider] - Stand Alone Forms: Work/School Release IP Time of Disposition: 09:12
== END 2024-08-05 09:46 | disposition home or self-care (01) ==
PROVIDERS: PCP Nurse Practitioner Family
DX: H66.91 Otitis media, unspecified, right ear (principal); F17.210 Nicotine dependence, cigarettes, uncomplicated
CPT/HCPCS: 81003; 87086; 99213; G0463

== ENCOUNTER 2024-10-09 10:08 | Emergency (ER) | payer OTHER, SELFPAY ==
[2024-10-09 10:15] VITALS: BP 129/84; PULSE 71; RESP 16; TEMP 36.2; O2SAT 99
--- NOTE | 2024-10-09 10:34 | ED_ITS ---
HPI - URI/Sore Throat General Chief Complaint: Upper Respiratory Infection Stated Complaint: Sinus Problem Time Seen by Provider: 10/09/24 10:34 Source: patient Mode of arrival: ambulatory Limitations: no limitations History of Present Illness HPI Narrative: 49 yo M presents with c/o headache, fatigue, nasal congestion started yesterday morning. When he got up for worked yesterday he vomited twice. Laid in bed most of day but did get up to eat. Ate all meals yesterday. has not vomited since yesterday morning. Missed work and doesnt feel like he can go to work today. Denies cough, sore throat. Nausea resolved. No ABD pain. All systems reviewed and negative except as noted above. Related Data Allergies Allergy/AdvReac Type Severity Reaction Status Date / Time naproxen Allergy Swelling Verified 10/09/24 10:18 [facility] Past Medical History Medical History Ear infection Fracture of right hand Surgical History Surgical History History of dental surgery edentulous H/O bilateral inguinal hernia repair Family History Family History Other Cerebrovascular accident Diabetes mellitus Family history of coronary artery disease Social History Social History Smoking packs per day: 1 Smoking cigarettes per day: 20.0 Years smoked: 26 Smoking pack-years: 26.00 Smoking status: Current every day smoker Tobacco type: cigarettes Alcohol intake: never Substance use: unknown Gender identity (if verbalized by the patient): Male Comments At time of signature, agree with nursing past medical, surgical, social and family history. There is no relevant family history pertinent to the presenting complaint. Exam Narrative: GENERAL: This is a well-nourished, well-developed patient, Ill-appearing but no acute distress HEAD: normocephalic, atraumatic. EYES: PERRL. Sclera clear/white. Vision is grossly intact. EARS: External ears normal, auditory canals clear and without drainage, clear fluid bilateral TMs without erythema or perforation. Hearing grossly intact. NOSE: External nose normal with Clear nasal drainage. No sinus tenderness on palpation. THROAT: Mucous membranes moist, posterior pharynx clear. NECK: Neck supple, non-tender without lymphadenopathy, masses or thyromegaly. CARDIOVASCULAR: Regular rate and rhythm without murmurs, gallops, or rubs. RESPIRATORY: Clear to auscultation. Breath sounds equal bilaterally. No wheezes, rales, or rhonchi. GASTROINTESTINAL: Abdomen soft, non-tender, nondistended. Bowel sounds are active. No hepato-splenomegaly, or palpable masses. No guarding. SKIN: warm, Dry, intact with no suspicious lesions or rash, good texture and turgor. NEURO: awake, alert, and oriented to person, place and time. There were no obvious focal neurologic abnormalities. EXTREMITIES: No joint tenderness, effusion, or edema noted. Course Course Level of Care: Express Care Visit Vital Signs Vital signs: Vital Signs Temperature 36.2 C L 10/09/24 10:15 Pulse Rate 71 10/09/24 10:15 Respiratory Rate 16 10/09/24 10:15 Blood Pressure 129/84 10/09/24 10:15 Pulse Oximetry 99 10/09/24 10:15 Oxygen Delivery Room Air 10/09/24 10:15 Temperature 36.2 C L 10/09/24 10:15 Pulse Rate 71 10/09/24 10:15 Respiratory Rate 16 10/09/24 10:15 Blood Pressure 129/84 10/09/24 10:15 Pulse Oximetry 99 10/09/24 10:15 Oxygen Delivery Room Air 10/09/24 10:15 Reviewed MDM - URI/Sore Throat MDM Narrative Medical decision making narrative: negative COVID and influenza test. Recommend [id number] decongestant To treat viral symptoms. Nausea vomiting resolve, no abdominal. Differential Diagnosis Differential diagnosis: Likely upper respiratory infection, otitis media, sinusitis, viral infection and influenza Lab Data Labs: Lab Results 10/09/24 Range/Units 10:18 POC Influenza A Ag Negative (Negative) POC Influenza B Ag Negative (Negative) POC SARS CoV-2 Ag Negative (Negative) Discharge Plan Discharge Clinical Impression: Upper respiratory infection, viral Patient Disposition: Home Condition: Stable Instructions: Upper Respiratory Infection (ED) Additional Instructions: your COVID and influenza test was negative. Her symptoms are viral and may last 7-10 days. purchase the [id number]-kfsnrca decongestion, pseudoephedrine, and take as directed on packaging. Take Tylenol or ibuprofen every 6-8 hours as needed for pain and fever. Drink at least 64 oz of water a day. See your doctor symptoms are not improving. Patient Language: Greenlandic Follow-up/Referrals: Milad,Yanet Garcia APN [Primary Care Provider, Unknown] Stand Alone Forms: Work/School Release IP Time of Disposition: 10:44
[2024-10-09 10:37] LABS: EDCOVIDSCREEN Negative (Negative); EDINFLUASCREEN Negative (Negative); EDINFLUBSCREEN Negative (Negative)
--- OUTSIDE RECORDS SUMMARY | 2024-10-09 10:46 | XMS_ITS | Clinical Summary ---
Author Organization [facility] Address [address] [place] [address] Care Team Providers Care Channel Lip Wetter Name Role Phone Poonam Velez MD Primary Care Provider [phone] Source Comments [facility],non-owned Affiliates and Associated Physician Practices is amultiple site organization consisting of ambulatory clinics and hospital sitesin [place], [place], [place] and [place]. This disclosure is being madepursuant to the Care Everywhere program and may not contain all information available regarding this patient. 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
--- OUTSIDE RECORDS SUMMARY | 2024-10-09 10:46 | XMS_ITS | Clinical Summary ---
Author Organization [facility] Address [address] [place] [address] Phone Care Team Providers Care Ground Crewman Name Role Phone Yanet Stinson ALAINA COTA Primary Care Provider [phone] Social History Tobacco Use Types Packs/Day Years Used Date Smoking Tobacco: Never Assessed Sex and Gender Information Value Date Recorded Sex Assigned at Not on file Legal Sex Male 12:08 AM CDT Gender Identity Not on file Sexual Orientation Not on file Plan of Treatment Health Maintenance Due Date Last Done Comments Hepatitis C Virus (HCV) Screening 1977 TdaP Immunization 1977 Hepatitis B Immunization (1 of 3 - 19+ 3-dose series) 1996 Cologuard 2022 Colonoscopy 2022 Colorectal Cancer Screening 2022 Immunochemical Fecal Occult Blood 2022 SARS-COV-2 Immunization ( season) 2023 Influenza Immunization (#1) 2024 Respiratory Syncytial Virus (RSV) Immunization (Adult) (1 - 1-dose 75+ series) 2052 Human Papillomavirus (HPV) Immunization Aged Out No longer eligible b ased on patient's age to complete this topic Meningococcal Immunization (ACWY) Aged Out No longer eligible based on patient's age to complete this topic Pneumococcal Immunization Combined Aged Out No longer eligible based on patient's age to complete this topic Rotavirus Immunization Aged Out No lo nger eligible based on patient's age to complete this topic Insurance MEDICAID [employer] Care Teams Ground Crewman Relationship Specialty Start Date End Date Yanet Stinson APRN, ALAINA [address] [place] [address] PCP - General Family Medicine 03/14/22
--- OUTSIDE RECORDS SUMMARY | 2024-10-09 10:46 | XMS_ITS | Clinical Summary ---
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 Room: [facility] ENDOSCOPY ROOM 1 Note Status: Finalized [...] passed under direct vision. The PediatricColonoscope PCF-H190L [id number] was introduced through the anusand advanced to [...] 7:44 AM Procedure Code(s): --- Professional --- 45991, Colonoscopy, flexible; diagnostic, including collection of specimen(s) by brushing or washing, when performed (separateprocedure) Diagnosis Code(s): --- Professional --- Z86.010, Personal history of colonic polyps K64.8, Other hemorrhoids CPT copyright 2017 [employer]. All rights reserved. The codes documented in this report are preliminary and upon pre coder reviewmay be revised to meet current compliance requirements. Recognized by the [place] [employer] for promoting quality in endoscopy Hong Acosta MD ENDOSCOPY PROCEDURES Final Result from Last 3 Months or Most Recently Relevant to Health Maintenance Insurance [facility] Advance Directives For more information, please contact: [phone] * Full Code (Latest Code Status on File) Date Activated Date Inactivated Comments 11/14/2019 7:43 AM 11/14/2019 2:51 PM * Full Code Date Activated Date Inactivated Comments 11/19/2017 11:09 PM 11/20/2017 10:08 PM * Full Code Date Activated Date Inactivated Comments 11/19/2017 2:14 PM 11/19/2017 11:09 PM Care Teams Escrow Clerk Relationship Specialty Start Date End Date Yanet Stinson NP [address] [place] [address] PCP - General Nurse Practitioner 03/14/22
== END 2024-10-09 10:50 | disposition home or self-care (01) ==
PROVIDERS: Emergency Provider Nurse Practitioner Family; PCP Nurse Practitioner Family
DX: J06.9 Acute upper respiratory infection, unspecified (principal); Z20.822 Contact with and (suspected) exposure to COVID-19; F17.210 Nicotine dependence, cigarettes, uncomplicated
CPT/HCPCS: 87426; 87804; 99212; G0463

== ENCOUNTER 2025-01-05 09:39 | Emergency (ER) | payer OTHER, SELFPAY ==
[2025-01-05 09:48] VITALS: BP 128/78; PULSE 82; RESP 14; TEMP 37; O2SAT 100
[2025-01-05 10:10] LABS: EDSTREPNEGPOS1 Negative (Negative)
--- NOTE | 2025-01-05 10:58 | ED.URI ---
HPI - URI/Sore Throat General Chief Complaint: Upper Respiratory Infection Stated Complaint: Ear Pain/Sore Throat Time Seen by Provider: 01/05/25 10:40 Source: patient and RN notes reviewed Mode of arrival: ambulatory Limitations: no limitations History of Present Illness HPI Narrative: 49-year-old male patient presents Express Care complaining upper respiratory symptoms for approximately 5 days. Patient reports cough, congestion, sore throat, mucopurulent nasal drainage, sinus pressure. Patient denies any fevers antibiotics, chills, nausea vomiting, diarrhea, any other upper respiratory symptoms, chest pain, difficulty breathing or any other symptoms. He said he does symptoms were getting better over the weekend and then suddenly got worse yesterday. Patient denies any significant past medical history. Related Data Allergies Allergy/AdvReac Type Severity Reaction Status Date / Time naproxen Allergy Swelling Verified 01/05/25 10:30 Review of Systems Review of Systems: CONSTITUTIONAL: Denies fever, chills, body aches, or sweats. EYES: Denies visual changes, redness, or discharge. ENT: Positive for sinus pressure, congestion, sore throat. Negative for rhinorrhea or otalgia. CARDIOVASCULAR: Denies chest pain, palpitations, or edema. RESPIRATORY: Positive for cough. Negative for dyspnea. Or wheezing GASTROINTESTINAL: Denies abdominal pain, nausea, vomiting, or diarrhea. GENITOURINARY: Denies dysuria or hematuria. SKIN: Denies rash or itching. MUSCULOSKELETAL: Denies back pain, joint pain, or myalgia. NEUROLOGIC: Denies headache, numbness, or weakness. PSYCHIATRIC: Denies anxiety or depression. All other systems reviewed are negative, except as documented in HPI. [facility] Past Medical History Medical History Ear infection Fracture of right hand Surgical History Surgical History History of dental surgery edentulous H/O bilateral inguinal hernia repair Family History Family History Other Cerebrovascular accident Diabetes mellitus Family history of coronary artery disease Social History Social History Smoking packs per day: 1 Smoking cigarettes per day: 20.0 Years smoked: 26 Smoking pack-years: 26.00 Smoking status: Current every day smoker Tobacco type: cigarettes Alcohol intake: never Substance use: unknown Gender identity (if verbalized by the patient): Male Comments At the time of my signature, I reviewed and agree with the nursing past medical, surgical, social, and family history. There is no relevant family history pertinent to the patient complaint. Exam Narrative: GENERAL: This is a well-nourished, well-developed adult, in no apparent distress. They are non ill-appearing, nontoxic appearing. HEAD: normocephalic, atraumatic. EYES: Sclera clear/white. Vision is grossly intact. Conjunctiva normal bilaterally. Extraocular movements intact. EARS: External ears normal, auditory canals clear and without drainage, TMs without erythema or perforation. Hearing grossly intact. NOSE: External nose normal with no obvious nasal discharge, nasal turbinates erythematous with exudate, no rhinorrhea. Maxillary and frontal sinus tenderness to palpation. THROAT: Mucous membranes moist, posterior pharynx erythematous without exudate. Uvula is midline. Cobblestone appearing. Postnasal drip present. NECK: Neck supple, non-tender without lymphadenopathy, masses or thyromegaly. CARDIOVASCULAR: Regular rate and rhythm without murmurs, gallops, or rubs. RESPIRATORY: Clear to auscultation. Breath sounds equal bilaterally. No wheezes, rales, or rhonchi. SKIN: warm, Dry, intact with no suspicious lesions or rash, good texture and turgor. NEURO: awake, alert, and oriented to person, place and time. There were no obvious focal neurologic abnormalities. EXTREMITIES: No joint tenderness, effusion, or edema noted. BACK: Nontender without deformity. Course Course Emergency Course: Portions of this record may have been created with voice recognition software Level of Care: Express Care Visit Vital Signs Vital signs: Vital Signs Temperature 98.6 F 01/05/25 09:48 Pulse Rate 82 01/05/25 09:48 Respiratory Rate 14 01/05/25 09:48 Blood Pressure 128/78 01/05/25 09:48 Pulse Oximetry 100 01/05/25 09:48 Oxygen Delivery Room Air 01/05/25 09:48 Temperature 98.6 F 01/05/25 09:48 Pulse Rate 82 01/05/25 09:48 Respiratory Rate 14 01/05/25 09:48 Blood Pressure 128/78 01/05/25 09:48 Pulse Oximetry 100 01/05/25 09:48 Oxygen Delivery Room Air 01/05/25 09:48 MDM - URI/Sore Throat MDM Narrative Medical decision making narrative: Given patient's waxing and waning and worsening of symptoms, likely developed a bacterial sinusitis. Rapid strep is negative. A throat culture is pending. Will go ahead and treat him with Augmentin. Discussed physical exam findings. Advised supportive measures and signs/symptoms to go to the ER. Pt is appropriate for outpt treatment and f/u. Differential Diagnosis Differential diagnosis: Likely upper respiratory infection, otitis media, sinusitis, viral infection and pharyngitis Lab Data Labs: Lab Results 01/05/25 Range/Units 09:54 POC Grp A Strep Screen Negative (Negative) Discharge Plan Discharge Clinical Impression: Sinusitis Qualifiers: Sinusitis location: unspecified location Chronicity: acute Recurrence: non-recurrent Qualified Code(s): J01.90 - Acute sinusitis, unspecified Patient Disposition: Home Condition: Stable Instructions: Antibiotic Form, Sinusitis (ED) Additional Instructions: Take the antibiotics as directed and complete the course even if you start to feel better. You may use a Neti pot saline rinse 3 times a day with lukewarm distilled water Continue to take Tylenol or Motrin as needed for pain or fevers. Follow instructions on the bottle. Use a humidifier or vaporizer at night. Drink plenty of water. 8-10 glasses per day. Use flonase 2 times per day for 5 days then as needed Take mucinex 2 times per day and be sure to take with 8oz of water. Follow up with Primary provider in 3-5 days Please go to the ER if he develops any difficulty breathing, worsening symptoms, chest pains, vomiting, or any other serious concerns Patient Language: Somali Prescriptions: New amoxicillin-pot clavulanate 875-125 mg tablet 1 tablet PO Q12H 7 Days Qty: 14 0RF Follow-up/Referrals: Milad,Yanet Garcia APN [Primary Care Provider, Unknown] Stand Alone Forms: Work/School Release IP Time of Disposition: 10:57
== END 2025-01-05 11:05 | disposition home or self-care (01) ==
PROVIDERS: PCP Nurse Practitioner Family
DX: J01.90 Acute sinusitis, unspecified (principal); F17.210 Nicotine dependence, cigarettes, uncomplicated
CPT/HCPCS: 87081; 87880; 99213; G0463

== ENCOUNTER 2025-02-06 09:43 | Emergency (ER) | payer OTHER, MEDICAID, SELFPAY ==
[2025-02-06 09:53] VITALS: BP 129/84; PULSE 77; RESP 16; TEMP 36.6; O2SAT 100
--- OUTSIDE RECORDS SUMMARY | 2025-02-06 10:05 | XMS_ITS | Clinical Summary ---
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 Room: [facility] RO[facility] 1 Note Status: Finalized Patient [...] passed under direct vision. The PediatricColonoscope [id number] [id number] was introduced through the anusand advanced to [...] 7:44 AM Procedure Code(s): --- Professional --- 76617, Colonoscopy, flexible; diagnostic, including collection of specimen(s) by brushing or washing, when performed (separateprocedure) Diagnosis Code(s): --- Professional --- Z86.010, Personal history of colonic polyps K64.8, Other hemorrhoids CPT copyright 2017 [employer]. All rights reserved. The codes documented in this report are preliminary and upon local flatbed driver reviewmay be revised to meet current compliance requirements. Recognized by the [employer] for promoting quality in endoscopy Hong Acosta MD ENDOSCOPY PROCEDURES Final Result from Last 3 Months or Most Recently Relevant to Health Maintenance Insurance [facility] Advance Directives For more information, please contact: [phone] * Full Code (Latest Code Status on File) Date Activated Date Inactivated Comments 11/14/2019 7:43 AM 11/14/2019 2:51 PM * Full Code Date Activated Date Inactivated Comments 11/19/2017 11:09 PM 11/20/2017 10:08 PM * Full Code Date Activated Date Inactivated Comments 11/19/2017 2:14 PM 11/19/2017 11:09 PM Care Teams Order Manager Relationship Specialty Start Date End Date Yanet Stinson NP [address] [place] [address] PCP - General Nurse Practitioner 03/14/22
--- OUTSIDE RECORDS SUMMARY | 2025-02-06 10:05 | XMS_ITS | Clinical Summary ---
Author Organization [facility] Address [address], [facility] [address] [place] [address] Phone Care Team Providers Care Sports Equipment Supervisor Name Role Phone Yanet Stinson ALAINA COTA Primary Care Provider [phone] Social History Tobacco Use Types Packs/Day Years [...] Screening 2022 Immunochemical Fecal Occult Blood 2022 Influenza Immunization (#1) 2024 SARS-COV-2 Immunization (2024- season) 2024 Respiratory Syncytial Virus (RSV) Immunization (Adult) (1 - 1-dose 75+ series) 2052 Human Papillomavirus (HPV) Immunization (No Doses Required) Completed Meningococcal Immunization (ACWY) Aged Out No longer eligible based on patient's age to complete this topic Pneumococcal Immunization Combined Aged Out No longer eligible based on patient's age to complete this topic Rotavirus Immunization Aged Out No lo nger eligible based on patient's age to complete this topic Insurance MEDICAID [employer] Care Teams Sports Equipment Supervisor Relationship Specialty Start Date End Date Yanet Stinson APRN, ALAINA PCP - General Family Medicine 03/14/22
--- OUTSIDE RECORDS SUMMARY | 2025-02-06 10:05 | XMS_ITS | Clinical Summary ---
Author Organization [facility] Address [address] [facility] [place] [address] Care Team Providers Care Incising Machine Operator Name Role Phone Poonam Velez MD Primary Care Provider [phone] Source Comments [facility],non-owned Affiliates and Associated Physician Practices is amultiple site organization consisting of ambulatory clinics and hospital sitesin [place], [place], [place] and [place]. This disclosure is being madepursuant to the Care Everywhere program and may not contain all information available regarding this patient. 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
--- NOTE | 2025-02-06 10:15 | ED_ITS ---
HPI - URI/Sore Throat General Chief Complaint: Nausea/Vomiting/Diarrhea Stated Complaint: Vomiting/Chills Time Seen by Provider: 02/06/25 10:15 Source: patient, RN notes reviewed and old records reviewed Mode of arrival: ambulatory Limitations: no limitations History of Present Illness HPI Narrative: 49-year-old male presents to the [facility] with fatigue and chills that started Sunday, 2 days ago. Patient states that he vomited a couple times on hand is feeling better today. No treatment prior to arrival Treatments prior to arrival: none Related Data Home Medications ?Medication ?Instructions ?Recorded ?Confirmed ?Last Taken ?Type No Home Medications 02/06/25 02/06/25 U nknown History Allergies Allergy/AdvReac Type Severity Reaction Status Date / Time naproxen Allergy Swelling Verified 02/06/25 09:57 Review of Systems Review of Systems: All systems reviewed & are unremarkable except as noted in HPI and below Constitutional: Constitutional: Reports as per HPI and Reports chills ENT: Reports system reviewed and no additional complaints, except as documented Cardiovascular: Cardiovascular: Reports no additional cardiovascular complaints, Denies chest pain and Denies dyspnea Respiratory: Respiratory: Reports no additional respiratory complaints, Denies chest congestion, Denies cough and Denies dyspnea Gastrointestinal: Gastrointestinal: Reports as per HPI, Denies abdominal pain, Reports nausea and Reports vomiting Musculoskeletal: Musculoskeletal: Reports no additional musculoskeletal complaints Integumentary/Breasts: Skin/Breast: Reports system reviewed and no additional complaints, except as docu PMFSH Past Medical History Medical History Ear infection Fracture of right hand Surgical History Surgical History History of dental surgery edentulous H/O bilateral inguinal hernia repair Family History Family History Other Cerebrovascular accident Diabetes mellitus Family history of coronary artery disease Social History Social History Smoking packs per day: 1 Smoking cigarettes per day: 20.0 Years smoked: 26 Smoking pack-years: 26.00 Smoking status: Current every day smoker Tobacco type: cigarettes Alcohol intake: never Substance use: unknown Gender identity (if verbalized by the patient): Male Comments At the time of my signature, I reviewed and agree with the nursing past medical, surgical, social, and family history. There is no relevant family history pertinent to the patient complaint. Exam Const: General: cooperative, healthy appearing, comfortable, no acute distress, well developed, alert and well nourished Nutritional Appearance: well nourished Orientation/consciousness: patient oriented x3 Limitations: no limitations HENMT: Head: normal to inspection Ears: hearing grossly normal bilaterally, external ears normal, TM's normal bilaterally, EAC's normal, mastoids normal and no periauricular adenopathy Face and sinus: normal facial exam Mouth: Yes Normal oral and palatal mucosa present, Yes lip normal, Yes tongue normal and Yes moist mucous membranes abnormal Throat: posterior oropharynx normal, uvula midline and no uvular edema Eyes: General: appearance normal, both eyes and all related structures Alignment and Position: alignment normal Neck: Neck: normal visual inspection, full ROM, no lymphadenopathy and no meningeal signs Chest: Chest palpation & inspection: normal inspection of the chest Resp: Effort & Inspection: normal respiratory effort and able to speak in complete sentences Auscultation: clear to auscultation bilaterally, no crackles, no rales, no rhonchi and no wheezes Cardio: Rate: regular rate Skin: General skin exam: normal color and no rashes or lesions noted Neuro: General: patient oriented x3, gait normal, moves all extremities and no meningeal signs Cognition (Neuro): normal cognition Speech: normal speech Gait exam (Neuro): Normal gait present Extrem: General: normal to inspection, full ROM, capillary refill normal and normal gait Psych: Appearance: grossly normal and well kempt Mental Status: mental status grossly normal Speech and movement: Normal speech and movement present and Clear speech present Affect: normal affect Attitude: cooperative Course Course Level of Care: Express Care Visit Vital Signs Vital signs: Vital Signs Temperature 97.9 F 02/06/25 09:53 Pulse Rate 77 02/06/25 09:53 Respiratory Rate 16 02/06/25 09:53 Blood Pressure 129/84 02/06/25 09:53 Pulse Oximetry 100 02/06/25 09:53 Oxygen Delivery Room Air 02/06/25 09:53 Temperature 97.9 F 12/19/25 09:53 Pulse Rate 77 02/06/25 09:53 Respiratory Rate 16 02/06/25 09:53 Blood Pressure 129/84 02/06/25 09:53 Pulse Oximetry 100 02/06/25 09:53 Oxygen Delivery Room Air 02/06/25 09:53 reviewed MDM MDM Narrative Medical decision making narrative: patient sitting in exam room. Patient is nontoxic, vitals stable. Patient presents with fatigue and chills, vomited couple times yesterday. States that he is feeling better today. Patient is flu and COVID are negative. Patient most likely with viral symptoms. Requesting a work note. Patient appropriate for outpatient treatment with close follow-up Discharge instructions reviewed with patient, as well as provided in writing per nursing staff. The instructions also include specific and strict return/GO TO THE ER as well as f/u information. All questions have been answered, and the patient deny any further questions with discharge and discharge plan. Some parts of this dictation were generated by voice recognition software and may contain typographical and/or grammatical inaccuracies. Differential Diagnosis Differential Diagnosis: Differential diagnostic considerations for upper respiratory infection include upper respiratory infection, croup, otitis media, sinusitis, viral infection, bronchitis, influenza, pharyngitis, strep, uvulitis.? Lab Data Labs: Lab Results 02/06/25 Range/Units 10:16 POC Influenza A Ag Negative (Negative) POC Influenza B Ag Negative (Negative) POC SARS CoV-2 Ag Negative (Negative) reviewed Discharge Plan Discharge Clinical Impression: Influenza-like illness Patient Disposition: Home Condition: Stable Instructions: Antibiotic Form, Influenza (ED) Additional Instructions: Your rapid strep swab was negative today at [facility]. A throat culture will be sent to the laboratory for further testing. If the test is positive, you will receive a phone call within 48 hours and an appropriate antibiotic will be initiated at that time. Your rapid COVID test were negative Your rapid flu test was negative Your symptoms are likely due to a viral illness, which is not treated with antibiotics. Typically viral infections last 7-10 days, can linger for couple of weeks. It is very important to treat your symptoms. Drink plenty of water, Gatorade, Pedialyte, ice pops or Jell-O. -Alternate Tylenol and Motrin per package directions for fever or pain. You can alternate every 4 hours -Antihistamine medication such as Zyrtec/Claritin/Natalie during the day can help improve symptoms. -doing daily nasal irrigations can help relieve pressure your sinuses. Things like a Neti pot -Use Flonase twice a day for 5 days then daily to help reduce the inflammation and dry up your sinuses. -You can also use Mucinex. Be sure to drink plenty of water with this medication at least 8 ounces with every dose and it is important to drink 8 to 10 glasses of water per day. Water is a natural decongestant -Eat and drink things that are easy to swallow, like tea or soup, or popsicles. -Oral rinses such as: Salt water gargles and/or may use topical anesthetic (eg. Chloraseptic spray) or lozenges to relieve dryness or throat pain). -Frequent hand washing or hand long term care administrator is one of the best ways to prevent spread of infection. -Using a vaporizer or humidifier at night will also help thin secretions and help with coughing up phlegm. -Follow up with primary care provider in 7-10 days if condition is not improving - For new or worsening symptoms go directly to the nearest ER Patient Language: Polish Prescriptions: No Action No Home Medications Follow-up/Referrals: Milad,Yanet Garcia APN [Primary Care Provider, Unknown] Stand Alone Forms: Work/School Release IP Time of Disposition: 10:18
[2025-02-06 10:18] LABS: EDCOVIDSCREEN Negative (Negative); EDINFLUASCREEN Negative (Negative); EDINFLUBSCREEN Negative (Negative)
== END 2025-02-06 10:27 | disposition home or self-care (01) ==
PROVIDERS: Emergency Provider Nurse Practitioner; PCP Nurse Practitioner Family
DX: J11.1 Influenza due to unidentified influenza virus with other respiratory manifestations (principal); Z20.822 Contact with and (suspected) exposure to COVID-19; F17.210 Nicotine dependence, cigarettes, uncomplicated
CPT/HCPCS: 87426; 87804; 99212; G0463